=== PATIENT | male | born 1945 | race Caucasian/White ===

== ENCOUNTER 2022-05-31 14:30 | Inpatient (IN) ==
[2022-05-31] MEDS ORDERED: LEXAPRO ONE (20:26)
[2022-05-31] MEDS: ZOSYN VIAL 4.5 GRAMS 4.5 G in NS 100 ML IV 100 ML IV SCH ×2 (20:39→22:21)
[2022-05-31] MEDS: LOTENSIN TAB 10 MG PO SCH (20:40)
[2022-05-31] MEDS: FLOMAX PO SCH (20:40)
[2022-05-31] MEDS: LEXAPRO PO SCH (20:40)
[2022-05-31] MEDS: NORVASC TAB 10 MG PO SCH (20:41)
[2022-05-31] MEDS: PREDNISONE TAB 5 MG PO SCH (20:50)
[2022-05-31] MEDS: DUONEB 0.5 MG/3 MG (3 mL) NEB PRN (21:00)
[2022-05-31] MEDS ORDERED: PATIENT'S HOME MEDICATION PO SCH (21:00)
[2022-05-31] MEDS: RESTORIL CAP 15 MG PO PRN (22:46)
[2022-05-31 23:04] LABS: BASOPHILS # (AUTO) 0.1 X10^3/uL (0.0-0.1); BASOPHILS % (AUTO) 0.6 % (0.2-1.0); EOSINOPHILS # (AUTO) 0.2 x10^3/uL (0.0-0.2); EOSINOPHILS % (AUTO) 1.9 % (0.9-2.9); HEMATOCRIT 32.8 % (42.0-54.0); HEMOGLOBIN 10.8 g/dL (13.5-18.0); LYMPHOCYTES # (AUTO) 1.6 X10^3/uL (1.3-2.9); LYMPHOCYTES % (AUTO) 14.4 % (21.0-51.0); MEAN CORPUSCULAR VOLUME 84.9 fL (80.0-100.0); MEAN PLATELET VOLUME 7.1 fL (7.4-11.0); MONOCYTES # (AUTO) 1.1 x10^3/uL (0.3-0.8); MONOCYTES % (AUTO) 9.2 % (0.0-13.0); NEUTROPHILS # (AUTO) 8.4 x10^3/uL (2.2-4.8); NEUTROPHILS % (AUTO) 73.9 % (42.0-75.0); RED BLOOD COUNT 3.86 X10^6/uL (4.7-6.0); WHITE BLOOD COUNT 11.4 X10^3/uL (3.6-10.0)
[2022-05-31 23:16] LABS: ALANINE AMINOTRANSFERASE 37 Units/L (12-78); ALBUMIN 2.4 g/dL (3.4-5.0); ALKALINE PHOSPHATASE 107 Units/L (46-116); ASPARTATE AMINO TRANSFERASE 18 Units/L (15-37); BLOOD UREA NITROGEN 17 mg/dL (7-18); CALCIUM 7.2 mg/dL (8.5-10.1); CHLORIDE 105 mmol/L (98-107); COR CA(FOR HYPOALB) 8.5 mg/dL (8.5-10.1); COR NA(FOR HYPERGLY) 139 mmol/L (136-145); CREATININE 0.96 mg/dL (0.70-1.30); SODIUM 139 mmol/L (136-145); TOTAL PROTEIN 5.7 g/dL (6.4-8.2); eGFR NON BLACK RACES > 60 (>60)
[2022-05-31] MEDS ORDERED: MICRO K EXTEN CAP 10 MEQ PO PRN (23:27)
[2022-05-31] MEDS ORDERED: KLOR-CON PO PRN (23:27)
[2022-05-31] MEDS ORDERED: POTASSIUM CHLORIDE LIQ 20 MEQ UDC PO PRN (23:27)
[2022-05-31] MEDS ORDERED: K-DUR TAB 20 MEQ PO PRN (23:27)
[2022-05-31] MEDS ORDERED: MAGNESIUM SULFATE 1 GRAM/100 mL PREMIX 1 G/100 ML BAG IV PRN (23:27)
[2022-05-31] MEDS ORDERED: K-RIDER 10 MEQ/NS 100 ML 10 MEQ/100 ML BAG IV PRN (23:27)
[2022-05-31] MEDS: CLEOCIN 600 MG IV PREMIX 600 MG/50 ML BAG IV SCH (23:54)
[2022-06-01] MEDS: DUONEB 0.5 MG/3 MG (3 mL) NEB PRN ×6 (01:00→20:47)
[2022-06-01] MEDS: CLEOCIN 600 MG IV PREMIX 600 MG/50 ML BAG IV SCH ×3 (05:02→21:00)
[2022-06-01] MEDS: ZOSYN VIAL 4.5 GRAMS 4.5 G in NS 100 ML IV 100 ML IV SCH ×3 (05:30→21:27)
[2022-06-01] MEDS: PREDNISONE TAB 5 MG PO SCH ×2 (08:41→20:04)
[2022-06-01] MEDS: LIPITOR TAB 20 MG PO SCH (08:42)
[2022-06-01] MEDS: ASPIRIN EC 81 MG PO SCH (08:42)
[2022-06-01] MEDS: NORVASC TAB 10 MG PO SCH ×2 (08:42→20:05)
--- NOTE | 2022-06-01 13:23 | PT/OTEVAL ---
PT/OT OBJECTIVES - HISTORY Prescription: PT Consult Diagnosis: Empyema Precautions: Fall Risk, Respiratory PMH: HTN, HLD, Anxiety, Depression, L Knee Replacement, L Shoulder Sx, L Hip Replacement Prior Level of Function: Independent Other: Per pt report: Pt resides in single story home with his with 7 steps to enter (BHR). Pt reports that he had been noting a gradual decline in strength and overall mobility during the few weeks leading up to his hospitalization but that he was able to perform all mobility tasks without a device within the home and community. Pt and his split household activities with pt doing the majority of the cooking. Pt's is unable to physically assist pt. DME: SPC. - COGNITION Mental Status: Alert, Oriented, Name, Date, Place, Purpose Communication Status: Verbal Ability to Follow Directions: 3 Step Memory Loss: None - PAIN Right Lateral Ribs Pain Scale: Discomfort (1-2) - BED MOBILITY Rolling: Independent Scooting: Independent Bridging: Independent - TRANSFERS Supine to Sit: Supervision Sit to Stand: Supervision Sit or Stand Pivot: Supervision - BALANCE Static Sitting: Good Standing: Fair Dynamic Sitting: Good Standing: Poor - NEUROMOTOR/SENSATION Rasta. Lower Ext Sensation: WFL Coordination: WFL Proprioception: WFL - HAND DOMINANCE Extremity Function: Hand Dominance: Right - ROM Bilateral LE ROM: WFL Muscle Tone: WFL - STRENGTH Bilateral LE Strength Number: 3 Other comment: Grossly 3+/5 - GAIT Pt. ambulates how many feet?: 300 Amount of Assistance Required: Minimal Type of Assistive Device: None Comments: CGA for balance/safety. Cues for posture PT/OT ASSESSMENT - PT Problem List: Decreased Bed Mobility, Decreased Transfers, Decreased Gait, Decreased Balance, Decreased Safety, Decreased LE Strength - PT GOALS Short Term Goals Days: 10 Transfers: Pt will perform functional transfers with mod I Gait: Pt will ambulate 500ft without a device with supervision Balance: Pt will increase static standing balance to good ROM/Strength: Pt will increase BLE strength by 1 MMT grade Charge Lpn Goals Days: 20 Gait: Pt will ambulate 1000ft without a device with mod I Balance: Pt will increase dynamic standing balance to good- ROM/Strength: Pt will perform 12 sit to stand transfers in 30 seconds & increase MMT to 5 Others: Pt will ascend/descend 7 stairs with HR with mod I - PATIENT GOALS Patient/Family Goals: "Just do what I can to get better and stronger" Goals Discussed with Patient/Family: Yes Rehabilitation Potential: Good to meet stated goals Justification for Potential: Facilitate highest level of function & safe discharge planning Weakness and Barriers: None - PLAN Suggested Treatment Plan: Bed Mobility Training, Therapeutic Activity, Gait Training, Neuro Re-education, Therapeutic Ex with HEP, Patient Education - FREQUENCY AND DURATION PT: 5x per week x 20 days Expected Continuation of Care at Discharge: Outpatient Therapy, Home Health Comments: Pending progress
--- NOTE | 2022-06-01 14:01 | DR.H&P ---
H&P - History & Physical for Day of: H&P Date: 05/31/22 - Chief Complaint Chief Complaint: IV ANTIBIOTIC THERAPY FOR LUNG INFECTION - History of Present Illness History of Present Illness: PT IS 77 WM TRANSFERRED FROM [facility] FOR SWING BE THERAPY TO RECEIVE IV ANTIBIOTIC THERAPY FOR TREATMENT OF R LUNG PNEUMONIA, EMPYEMA. PT DENIES ANY KNOWN COVID OR FLU EXPOSURE. DENIES CAD. PT ADMITTED FOR SWING BED TREATMENT. - Past Medical History Past Medical History: Arthritis, Hypertension - Past Surgical History Surgical History: Ortho Surgery - Family History Family Medical History: Diabetes Mellitus, Cancer, [place] - Social History Does patient currently use any type of tobacco product: Yes Have you used tobacco products in the last 12 months: Yes Type of Tobacco Use: Cigarettes Does any household member use tobacco: No Alcohol Use: None Drug Use: None Risks, benefits, and alternatives of opioids discussed: No - Medications Home Medications: No Known Drug Allergies Allergy (Verified 05/31/22 20:03) CONTINUE taking the following medications amlodipine 10 mg tablet 1 tab PO BID 05/31/22 [History] atorvastatin 20 mg tablet 1 tab PO QDAY 05/31/22 [History] benazepril 40 mg tablet 1 tab PO QDAY 05/31/22 [History] escitalopram oxalate 10 mg tablet 1 tab PO QDAY 05/31/22 [History] oxycodone-acetaminophen 10 mg-325 mg tablet 1 tab PO TID PRN 05/31/22 [History] tamsulosin 0.4 mg capsule 1 cap PO QDAY 05/31/22 [History] - Review of Systems Constitutional: Weakness Eyes: No Symptoms Reported ENT: No Symptoms Reported Respiratory: SOB with Excertion Cardiovascular: No Symptoms Reported Gastrointestinal: No Symptoms Reported Genitourinary: No Symptoms Reported Musculoskeletal: Back Pain Skin: No Symptoms Reported Neurological: No Symptoms Reported - Physical Exam Vital Signs: Temperature 98.6 F Pulse Rate [Bilateral Radial] 81 Pulse Rate 94 Respiratory Rate 18 Blood Pressure [Left Arm] 108/56 O2 Sat by Pulse Oximetry 94 Oriented: Normal Eyes: Normal Ear: Normal Nose: Normal Throat: Normal Respiratory: RML Diminished, RLL Diminished, LLL Diminished Cardiovascular: Normal. negative: Edema : Normal Auscultation: Bowel Sounds: Normal Palpation: Normal Tenderness: Normal Skin: Normal Musculoskeletal: Back:Lumbar Psychiatric: Normal Mood Description: Anxious Affect: Anxious Speech Pattern: Clear, Appropriate - Assessment/Plan (1) Empyema lung Status: Acute Plan: ADMIT SWING BED THERAPY FOR IV ATBX THERAPY. CONTINUE HOME MEDICATION, ROUTINE LABS - Allergies Allergies/Adverse Reactions: Allergies Allergy/AdvReac Type Severity Reaction Status Date / Time No Known Drug Allergies Allergy Verified 05/31/22 20:03
--- NOTE | 2022-06-01 15:16 | PT/OTEVAL ---
PT/OT OBJECTIVES - HISTORY Prescription: OT consult Diagnosis: S/P Empyema Precautions: SOB, Falls PMH: Arthritis, Hypertension Prior Level of Function: Independent - COGNITION Mental Status: Alert, Oriented, Name, Date, Place, Purpose Communication Status: Verbal Ability to Follow Directions: 3 Step Memory Loss: None - PAIN Right Lateral Ribs Pain Scale: No Pain - BED MOBILITY Rolling: Independent Scooting: Independent Bridging: Independent - TRANSFERS Supine to Sit: Independent Sit to Stand: Independent Sit or Stand Pivot: Independent - ADL'S Feeding: Independent Grooming: Independent Upper Body ADL: Independent Lower Body ADL: Supervision Toileting: Supervision - BALANCE Static Sitting: Good Standing: Fair Dynamic Sitting: Good Standing: Poor - NEUROMOTOR/SENSATION Rasta. Lower Ext Sensation: WFL Coordination: WFL Proprioception: WFL [place]. Upper Ext Sensation: WFL Coordination: WFL Proprioception: WFL - HAND DOMINANCE Extremity Function: Hand Dominance: Right - ROM Bilateral UE ROM: WFL Muscle Tone: WFL - STRENGTH Bilateral LE Strength Number: 3 Other comment: Grossly 3+/5 Bilateral UE Strength Number: 3 - GAIT Pt. ambulates how many feet?: 15 Amount of Assistance Required: Supervision PT/OT ASSESSMENT - OT Problem List: Decreased Mobility ADL's, Decreased Dressing, Decreased Bathing, Decreased UE Strength - PT GOALS Short Term Goals Days: 10 Transfers: Pt will perform functional transfers with mod I Gait: Pt will ambulate 500ft without a device with supervision Balance: Pt will increase static standing balance to good ROM/Strength: Pt will increase BLE strength by 1 MMT grade Assisted Goals Days: 20 Gait: Pt will ambulate 1000ft without a device with mod I Balance: Pt will increase dynamic standing balance to good- ROM/Strength: Pt will perform 12 sit to stand transfers in 30 seconds & increase MMT to 5 Others: Pt will ascend/descend 7 stairs with HR with mod I - OT GOALS Short Term Goals Days: 5 Mobility for ADL's: Pt will increase ADL transfers to set-up A using A.D. as necessary. Dressing: Pt will increase LB dressing skills to set-up A using A.D. as needed. Bathing: Pt will increase UB/LB bathing skills to set-up A. Upper Ext. Strength/Use: Pt will increase UE strength to 4/5. Plug Paster Goals Days: 10 Mobility for ADL's: Pt will increase ADL transfers to independent using A.D. as needed. Dressing: Pt will increase LB dressing skills to independent using A.D. as needed. Bathing: Pt will increase UB/LB bathing skills to independent. Upper Ext. Strength/Use: Pt will increase UE strength to 5/5. - PATIENT GOALS Patient/Family Goals: To return to PLOF Goals Discussed with Patient/Family: Yes Rehabilitation Potential: good Justification for Potential: PLOF and good family support Weakness and Barriers: None - PLAN Suggested Treatment Plan: Therapeutic Activity, Self Care Training, Neuro Re- education, Therapeutic Ex with HEP, Home Management, Patient Education, Family Education - FREQUENCY AND DURATION OT: 3x/wk x hospital stay Expected Continuation of Care at Discharge: Home Health
[2022-06-01] MEDS ORDERED: LEXAPRO ONE (19:46)
[2022-06-01] MEDS: RESTORIL CAP 15 MG PO PRN (20:03)
[2022-06-01] MEDS: LOTENSIN TAB 10 MG PO SCH (20:03)
[2022-06-01] MEDS: LEXAPRO PO SCH (20:04)
[2022-06-01] MEDS: FLOMAX PO SCH (20:05)
[2022-06-02] MEDS: CLEOCIN 600 MG IV PREMIX 600 MG/50 ML BAG IV SCH ×3 (05:01→21:02)
[2022-06-02] MEDS: ZOSYN VIAL 4.5 GRAMS 4.5 G in NS 100 ML IV 100 ML IV SCH ×3 (05:41→21:58)
[2022-06-02] MEDS: DUONEB 0.5 MG/3 MG (3 mL) NEB PRN ×5 (06:17→20:30)
[2022-06-02 06:38] LABS: BASOPHILS # (AUTO) 0.1 X10^3/uL (0.0-0.1); BASOPHILS % (AUTO) 0.8 % (0.2-1.0); EOSINOPHILS # (AUTO) 0.3 x10^3/uL (0.0-0.2); EOSINOPHILS % (AUTO) 2.5 % (0.9-2.9); HEMATOCRIT 30.4 % (42.0-54.0); HEMOGLOBIN 10.4 g/dL (13.5-18.0); LYMPHOCYTES # (AUTO) 1.3 X10^3/uL (1.3-2.9); LYMPHOCYTES % (AUTO) 11.8 % (21.0-51.0); MEAN CORPUSCULAR HGB CONC 34.1 g/dL (33.0-35.0); MEAN CORPUSCULAR VOLUME 85.1 fL (80.0-100.0); MEAN PLATELET VOLUME 7.1 fL (7.4-11.0); MONOCYTES # (AUTO) 0.9 x10^3/uL (0.3-0.8); MONOCYTES % (AUTO) 8.8 % (0.0-13.0); NEUTROPHILS # (AUTO) 8.1 x10^3/uL (2.2-4.8); NEUTROPHILS % (AUTO) 76.1 % (42.0-75.0); RED BLOOD COUNT 3.58 X10^6/uL (4.7-6.0); RED CELL DISTRIBUTION WIDTH 15.7 % (11.6-16.5); WHITE BLOOD COUNT 10.7 X10^3/uL (3.6-10.0)
[2022-06-02 06:48] LABS: ALANINE AMINOTRANSFERASE 33 Units/L (12-78); ALBUMIN 2.3 g/dL (3.4-5.0); ALKALINE PHOSPHATASE 97 Units/L (46-116); ASPARTATE AMINO TRANSFERASE 18 Units/L (15-37); BLOOD UREA NITROGEN 13 mg/dL (7-18); CALCIUM 7.3 mg/dL (8.5-10.1); CARBON DIOXIDE 30.2 mmol/L (21-32); CHLORIDE 104 mmol/L (98-107); COR CA(FOR HYPOALB) 8.7 mg/dL (8.5-10.1); CREATININE 0.86 mg/dL (0.70-1.30); SODIUM 137 mmol/L (136-145); TOTAL PROTEIN 5.5 g/dL (6.4-8.2); eGFR NON BLACK RACES > 60 (>60)
[2022-06-02] MEDS: LIPITOR TAB 20 MG PO SCH (08:29)
[2022-06-02] MEDS: ASPIRIN EC 81 MG PO SCH (08:30)
[2022-06-02] MEDS: PREDNISONE TAB 5 MG PO SCH ×2 (08:30→20:41)
[2022-06-02] MEDS: NORVASC TAB 10 MG PO SCH ×2 (08:35→20:41)
[2022-06-02] MEDS ORDERED: NS 250 ML IV 250 ML IV ONE (14:57)
[2022-06-02] MEDS ORDERED: LEXAPRO ONE (20:27)
[2022-06-02] MEDS: RESTORIL CAP 15 MG PO PRN (20:40)
[2022-06-02] MEDS: FLOMAX PO SCH (20:41)
[2022-06-02] MEDS: LEXAPRO PO SCH (20:41)
[2022-06-02] MEDS: LOTENSIN TAB 10 MG PO SCH (20:42)
[2022-06-03] MEDS: DUONEB 0.5 MG/3 MG (3 mL) NEB PRN ×6 (04:50→20:42)
[2022-06-03] MEDS: CLEOCIN 600 MG IV PREMIX 600 MG/50 ML BAG IV SCH ×3 (05:04→21:02)
[2022-06-03] MEDS: ZOSYN VIAL 4.5 GRAMS 4.5 G in NS 100 ML IV 100 ML IV SCH ×3 (05:40→21:49)
[2022-06-03] MEDS: PREDNISONE TAB 5 MG PO SCH ×2 (10:03→21:01)
[2022-06-03] MEDS: NORVASC TAB 10 MG PO SCH ×2 (10:03→21:01)
[2022-06-03] MEDS: ASPIRIN EC 81 MG PO SCH (10:03)
[2022-06-03] MEDS: LIPITOR TAB 20 MG PO SCH (10:03)
[2022-06-03 13:42] VITALS: BMI 29.9
--- NOTE | 2022-06-03 18:08 | PCM.PROG ---
Progress Note - Progress Note for Day of Date of Exam: 06/03/22 - Subjective Subjective: PT IS 77 WM TRANSFERRED FROM [facility] FOR SWING BE THERAPY TO RECEIVE IV ANTIBIOTIC THERAPY FOR TREATMENT OF R LUNG PNEUMONIA, EMPYEMA. PT DENIES ANY KNOWN COVID OR FLU EXPOSURE. DENIES CAD. PT ADMITTED FOR SWING BED TREATMENT. - Past Medical Family Social History Past Med/Fam/Surg Hx: No changes since H&P Allergies: Allergies No Known Drug Allergies Allergy (Verified 05/31/22 20:03) - Review of Systems ROS: No change since H&P - Vital Signs and I&O's Vital Signs: Temperature 98.0 F Pulse Rate [Bilateral Radial] 94 Pulse Rate 75 Respiratory Rate 20 Blood Pressure [Left Arm] 115/63 O2 Sat by Pulse Oximetry 98 Intake and Output: Intake & Output 06/01/22 06/02/22 06/03/22 06/04/22 11:59 11:59 11:59 11:59 Intake Total 626 / 626 2440 / 2440 1915 / 1915 400 / 400 Output Total 1280 / 1280 950 / 950 Balance 626 / 626 1160 / 1160 965 / 965 400 / 400 - Physical Exam Oriented: Normal Eyes: Normal Ear: Normal Nose: Normal Throat: Normal Respiratory: Diminished Cardiovascular: Normal. negative: Edema : Normal Auscultation: Bowel Sounds: Normal Tenderness: Normal Skin: Normal Musculoskeletal: Back:Lumbar Psychiatric: Normal Mood Description: Anxious Affect: Anxious Speech Pattern: Clear, Appropriate - Laboratory and Diagnostics Result Diagrams: 06/02/22 05:59 06/02/22 05:59 Labs: Laboratory WBC 10.7 X10^3/uL (3.6-10.0) H 06/02/22 05:59 RBC 3.58 X10^6/uL (4.7-6.0) L 06/02/22 05:59 Hgb 10.4 g/dL (13.5-18.0) L 06/02/22 05:59 Hct 30.4 % (42.0-54.0) L 06/02/22 05:59 MCV 85.1 fL (80.0-100.0) 06/02/22 05:59 MCH 29.0 pg (27.0-34.0) 06/02/22 05:59 MCHC 34.1 g/dL (33.0-35.0) 06/02/22 05:59 RDW 15.7 % (11.6-16.5) 06/02/22 05:59 Plt Count 251 X10^3/uL (150.0-450.0) 06/02/22 05:59 MPV 7.1 fL (7.4-11.0) L 06/02/22 05:59 Neut % (Auto) 76.1 % (42.0-75.0) H 06/02/22 05:59 Lymph % (Auto) 11.8 % (21.0-51.0) L 06/02/22 05:59 [place] % (Auto) 8.8 % (0.0-13.0) 06/02/22 05:59 Eos % (Auto) 2.5 % (0.9-2.9) 06/02/22 05:59 Baso % (Auto) 0.8 % (0.2-1.0) 06/02/22 05:59 Neut # (Auto) 8.1 x10^3/uL (2.2-4.8) H 06/02/22 05:59 Lymph # (Auto) 1.3 X10^3/uL (1.3-2.9) 06/02/22 05:59 [place] # (Auto) 0.9 x10^3/uL (0.3-0.8) H 06/02/22 05:59 Eos # (Auto) 0.3 x10^3/uL (0.0-0.2) H 06/02/22 05:59 Baso # (Auto) 0.1 X10^3/uL (0.0-0.1) 06/02/22 05:59 Absolute Nucleated RBC 0.0 /100WBC 06/02/22 05:59 Sodium 137 mmol/L (136-145) 06/02/22 05:59 Corrected Sodium TNP 06/02/22 05:59 Potassium 3.9 mmol/L (3.5-5.1) 06/02/22 05:59 Chloride 104 mmol/L (98-107) 06/02/22 05:59 Carbon Dioxide 30.2 mmol/L (21-32) 06/02/22 05:59 BUN 13 mg/dL (7-18) 06/02/22 05:59 Creatinine 0.86 mg/dL (0.70-1.30) 06/02/22 05:59 Est GFR (MDRD) Af Amer > 60 (>60) 06/02/22 05:59 Est GFR (MDRD) Non-Af > 60 (>60) 06/02/22 05:59 Glucose 105 mg/dL (65-99) H 06/02/22 05:59 Calcium 7.3 mg/dL (8.5-10.1) L 06/02/22 05:59 Corrected Calcium 8.7 mg/dL (8.5-10.1) 06/02/22 05:59 Magnesium 2.0 mg/dL (1.7-2.9) 06/02/22 05:59 Total Bilirubin 0.30 mg/dL (0.2-1.0) 06/02/22 05:59 AST 18 Units/L (15-37) 06/02/22 05:59 ALT 33 Units/L (12-78) 06/02/22 05:59 Alkaline Phosphatase 97 Units/L (46-116) 06/02/22 05:59 Total Protein 5.5 g/dL (6.4-8.2) L 06/02/22 05:59 Albumin 2.3 g/dL (3.4-5.0) L 06/02/22 05:59 Globulin 3.2 g/dL (2.5-4.5) 06/02/22 05:59 Albumin/Globulin Ratio 0.7 Ratio (1.1-2.1) L 06/02/22 05:59 - Plan (1) Empyema lung Status: Acute Plan: SWING BED THERAPY FOR IV ATBX THERAPY. CONTINUE HOME MEDICATION, ROUTINE LABS
[2022-06-03] MEDS ORDERED: LEXAPRO ONE (20:45)
[2022-06-03] MEDS: LOTENSIN TAB 10 MG PO SCH (21:00)
[2022-06-03] MEDS: FLOMAX PO SCH (21:01)
[2022-06-03] MEDS: LEXAPRO PO SCH (21:01)
[2022-06-03] MEDS: RESTORIL CAP 15 MG PO PRN (21:07)
[2022-06-04] MEDS: DUONEB 0.5 MG/3 MG (3 mL) NEB PRN ×7 (00:41→21:03)
[2022-06-04] MEDS: CLEOCIN 600 MG IV PREMIX 600 MG/50 ML BAG IV SCH ×3 (05:06→21:01)
[2022-06-04] MEDS: ZOSYN VIAL 4.5 GRAMS 4.5 G in NS 100 ML IV 100 ML IV SCH ×3 (05:43→21:38)
[2022-06-04 06:45] LABS: BASOPHILS # (AUTO) 0.1 X10^3/uL (0.0-0.1); BASOPHILS % (AUTO) 1.2 % (0.2-1.0); EOSINOPHILS # (AUTO) 0.3 x10^3/uL (0.0-0.2); EOSINOPHILS % (AUTO) 3.6 % (0.9-2.9); HEMATOCRIT 31.9 % (42.0-54.0); HEMOGLOBIN 10.8 g/dL (13.5-18.0); LYMPHOCYTES # (AUTO) 1.6 X10^3/uL (1.3-2.9); LYMPHOCYTES % (AUTO) 18.2 % (21.0-51.0); MEAN CORPUSCULAR HEMOGLOBIN 28.9 pg (27.0-34.0); MEAN CORPUSCULAR VOLUME 85.1 fL (80.0-100.0); MEAN PLATELET VOLUME 7.3 fL (7.4-11.0); MONOCYTES # (AUTO) 0.7 x10^3/uL (0.3-0.8); MONOCYTES % (AUTO) 8.3 % (0.0-13.0); NEUTROPHILS # (AUTO) 5.9 x10^3/uL (2.2-4.8); NEUTROPHILS % (AUTO) 68.7 % (42.0-75.0); RED BLOOD COUNT 3.75 X10^6/uL (4.7-6.0); RED CELL DISTRIBUTION WIDTH 16.9 % (11.6-16.5); WHITE BLOOD COUNT 8.6 X10^3/uL (3.6-10.0)
[2022-06-04 06:50] LABS: ALANINE AMINOTRANSFERASE 35 Units/L (12-78); ALBUMIN 2.5 g/dL (3.4-5.0); ALKALINE PHOSPHATASE 98 Units/L (46-116); ASPARTATE AMINO TRANSFERASE 23 Units/L (15-37); BLOOD UREA NITROGEN 12 mg/dL (7-18); CALCIUM 7.8 mg/dL (8.5-10.1); CARBON DIOXIDE 30.7 mmol/L (21-32); CHLORIDE 104 mmol/L (98-107); SODIUM 141 mmol/L (136-145); TOTAL PROTEIN 6.3 g/dL (6.4-8.2); eGFR NON BLACK RACES > 60 (>60)
--- NOTE | 2022-06-04 07:37 | RAD ---
HISTORYSOBSTUDYCHEST, 1 [id number]/17/2022.TECHNIQUEAP view of the chestFINDINGSCardiac and mediastinal contours are within normal limits. The left lung appears clear. No significant change in airspace opacities in the right lung with a mid to lower lung predominance. No definite pleural effusion or pneumothorax.IMPRESSIONNo significant change compared to prior radiograph.Electronically signed by: Ricky Bermeo (Jun 04, 2022 07:35:39)
[2022-06-04] MEDS ORDERED: MAGIC MOUTHWASH (Orig. Formula) MT PRN (08:57)
[2022-06-04] MEDS: ASPIRIN EC 81 MG PO SCH (09:22)
[2022-06-04] MEDS: PREDNISONE TAB 5 MG PO SCH ×2 (09:22→20:55)
[2022-06-04] MEDS: LIPITOR TAB 20 MG PO SCH (09:22)
[2022-06-04] MEDS: NORVASC TAB 10 MG PO SCH ×2 (09:22→20:56)
--- NOTE | 2022-06-04 12:35 | PCM.PROG ---
Progress Note - Progress Note for Day of Date of Exam: 06/04/22 - Subjective Subjective: PT IS 77 [facility] TO RECEIVE IV ANTIBIOTIC THERAPY FOR TREATMENT OF R LUNG PNEUMONIA, EMPYEMA. PT DENIES ANY KNOWN COVID OR FLU EXPOSURE. DENIES CAD. PT ADMITTED FOR SWING BED TREATMENT. - Past Medical Family Social History Past Med/Fam/Surg Hx: No changes since H&P Allergies: Allergies No Known Drug Allergies Allergy (Verified 05/31/22 20:03) - Review of Systems ROS: No change since H&P - Vital Signs and I&O's Vital Signs: Temperature 97.6 F Pulse Rate [Bilateral Radial] 103 Pulse Rate 99 Respiratory Rate 19 Blood Pressure [Left Arm] 130/66 O2 Sat by Pulse Oximetry 96 Intake and Output: Intake & Output 06/02/22 06/03/22 06/04/22 06/05/22 11:59 11:59 11:59 11:59 Intake Total 2440 / 2440 1915 / 1915 1496 / 1496 Output Total 1280 / 1280 950 / 950 1010 / 1010 Balance 1160 / 1160 965 / 965 486 / 486 - Physical Exam Oriented: Normal Eyes: Normal Ear: Normal Nose: Normal Throat: Normal Respiratory: Diminished Cardiovascular: Normal. negative: Edema : Normal Auscultation: Bowel Sounds: Normal Tenderness: Normal Skin: Normal Musculoskeletal: Back:Lumbar Psychiatric: Normal Mood Description: Anxious Affect: Anxious Speech Pattern: Clear, Appropriate - Laboratory and Diagnostics Result Diagrams: 06/04/22 05:17 06/04/22 05:17 Labs: Laboratory WBC 8.6 X10^3/uL (3.6-10.0) 06/04/22 05:17 RBC 3.75 X10^6/uL (4.7-6.0) L 06/04/22 05:17 Hgb 10.8 g/dL (13.5-18.0) L 06/04/22 05:17 Hct 31.9 % (42.0-54.0) L 06/04/22 05:17 MCV 85.1 fL (80.0-100.0) 06/04/22 05:17 MCH 28.9 pg (27.0-34.0) 06/04/22 05:17 MCHC 34.0 g/dL (33.0-35.0) 06/04/22 05:17 RDW 16.9 % (11.6-16.5) H 06/04/22 05:17 Plt Count 249 X10^3/uL (150.0-450.0) 06/04/22 05:17 MPV 7.3 fL (7.4-11.0) L 06/04/22 05:17 Neut % (Auto) 68.7 % (42.0-75.0) 06/04/22 05:17 Lymph % (Auto) 18.2 % (21.0-51.0) L 06/04/22 05:17 [place] % (Auto) 8.3 % (0.0-13.0) 06/04/22 05:17 Eos % (Auto) 3.6 % (0.9-2.9) H 06/04/22 05:17 Baso % (Auto) 1.2 % (0.2-1.0) H 06/04/22 05:17 Neut # (Auto) 5.9 x10^3/uL (2.2-4.8) H 06/04/22 05:17 Lymph # (Auto) 1.6 X10^3/uL (1.3-2.9) 06/04/22 05:17 [place] # (Auto) 0.7 x10^3/uL (0.3-0.8) 06/04/22 05:17 Eos # (Auto) 0.3 x10^3/uL (0.0-0.2) H 06/04/22 05:17 Baso # (Auto) 0.1 X10^3/uL (0.0-0.1) 06/04/22 05:17 Absolute Nucleated RBC 0.0 /100WBC 06/04/22 05:17 Sodium 141 mmol/L (136-145) 06/04/22 05:17 Corrected Sodium TNP 06/04/22 05:17 Potassium 4.0 mmol/L (3.5-5.1) 06/04/22 05:17 Chloride 104 mmol/L (98-107) 06/04/22 05:17 Carbon Dioxide 30.7 mmol/L (21-32) 06/04/22 05:17 BUN 12 mg/dL (7-18) 06/04/22 05:17 Creatinine 0.80 mg/dL (0.70-1.30) 06/04/22 05:17 Est GFR (MDRD) Af Amer > 60 (>60) 06/04/22 05:17 Est GFR (MDRD) Non-Af > 60 (>60) 06/04/22 05:17 Glucose 105 mg/dL (65-99) H 06/04/22 05:17 Calcium 7.8 mg/dL (8.5-10.1) L 06/04/22 05:17 Corrected Calcium 9.0 mg/dL (8.5-10.1) 06/04/22 05:17 Magnesium 2.0 mg/dL (1.7-2.9) 06/02/22 05:59 Total Bilirubin 0.30 mg/dL (0.2-1.0) 06/04/22 05:17 AST 23 Units/L (15-37) 06/04/22 05:17 ALT 35 Units/L (12-78) 06/04/22 05:17 Alkaline Phosphatase 98 Units/L (46-116) 06/04/22 05:17 Total Protein 6.3 g/dL (6.4-8.2) L 06/04/22 05:17 Albumin 2.5 g/dL (3.4-5.0) L 06/04/22 05:17 Globulin 3.8 g/dL (2.5-4.5) 06/04/22 05:17 Albumin/Globulin Ratio 0.7 Ratio (1.1-2.1) L 06/04/22 05:17 - Plan (1) Empyema lung Status: Acute Plan: SWING BED THERAPY FOR IV ATBX THERAPY. CONTINUE HOME MEDICATION, ROUTINE LABS
[2022-06-04] MEDS ORDERED: LEXAPRO ONE (20:16)
[2022-06-04] MEDS: LOTENSIN TAB 10 MG PO SCH (20:52)
[2022-06-04] MEDS: RESTORIL CAP 15 MG PO PRN (20:54)
[2022-06-04] MEDS: FLOMAX PO SCH (20:54)
[2022-06-04] MEDS: LEXAPRO PO SCH (20:54)
[2022-06-05] MEDS: DUONEB 0.5 MG/3 MG (3 mL) NEB PRN ×5 (00:58→21:00)
[2022-06-05 05:18] LABS: BASOPHILS # (AUTO) 0.1 X10^3/uL (0.0-0.1); BASOPHILS % (AUTO) 1.8 % (0.2-1.0); EOSINOPHILS # (AUTO) 0.3 x10^3/uL (0.0-0.2); EOSINOPHILS % (AUTO) 4.4 % (0.9-2.9); HEMATOCRIT 28.9 % (42.0-54.0); HEMOGLOBIN 9.7 g/dL (13.5-18.0); LYMPHOCYTES # (AUTO) 1.4 X10^3/uL (1.3-2.9); LYMPHOCYTES % (AUTO) 19.7 % (21.0-51.0); MEAN CORPUSCULAR HEMOGLOBIN 28.4 pg (27.0-34.0); MEAN CORPUSCULAR HGB CONC 33.5 g/dL (33.0-35.0); MEAN CORPUSCULAR VOLUME 84.7 fL (80.0-100.0); MEAN PLATELET VOLUME 6.9 fL (7.4-11.0); MONOCYTES # (AUTO) 0.6 x10^3/uL (0.3-0.8); MONOCYTES % (AUTO) 8.7 % (0.0-13.0); NEUTROPHILS # (AUTO) 4.8 x10^3/uL (2.2-4.8); NEUTROPHILS % (AUTO) 65.4 % (42.0-75.0); RED BLOOD COUNT 3.41 X10^6/uL (4.7-6.0); RED CELL DISTRIBUTION WIDTH 17.4 % (11.6-16.5); WHITE BLOOD COUNT 7.3 X10^3/uL (3.6-10.0)
[2022-06-05] MEDS: CLEOCIN 600 MG IV PREMIX 600 MG/50 ML BAG IV SCH ×3 (05:23→21:00)
[2022-06-05 05:32] LABS: ALANINE AMINOTRANSFERASE 28 Units/L (12-78); ALBUMIN 2.2 g/dL (3.4-5.0); ALKALINE PHOSPHATASE 100 Units/L (46-116); ASPARTATE AMINO TRANSFERASE 18 Units/L (15-37); BLOOD UREA NITROGEN 12 mg/dL (7-18); CALCIUM 7.4 mg/dL (8.5-10.1); CARBON DIOXIDE 28.3 mmol/L (21-32); CHLORIDE 108 mmol/L (98-107); COR CA(FOR HYPOALB) 8.8 mg/dL (8.5-10.1); CREATININE 0.92 mg/dL (0.70-1.30); SODIUM 143 mmol/L (136-145); TOTAL PROTEIN 5.6 g/dL (6.4-8.2); eGFR NON BLACK RACES > 60 (>60)
[2022-06-05] MEDS: ZOSYN VIAL 4.5 GRAMS 4.5 G in NS 100 ML IV 100 ML IV SCH ×3 (06:02→21:36)
[2022-06-05] MEDS: PREDNISONE TAB 5 MG PO SCH ×2 (08:47→21:24)
[2022-06-05] MEDS: LIPITOR TAB 20 MG PO SCH (08:47)
[2022-06-05] MEDS: NORVASC TAB 10 MG PO SCH ×2 (08:47→20:30)
[2022-06-05] MEDS: ASPIRIN EC 81 MG PO SCH (08:47)
[2022-06-05] MEDS ORDERED: NS 250 ML IV 250 ML IV ONE (18:12)
[2022-06-05] MEDS ORDERED: LEXAPRO ONE (20:16)
[2022-06-05] MEDS: LEXAPRO PO SCH (20:30)
[2022-06-05] MEDS: LOTENSIN TAB 10 MG PO SCH (20:30)
[2022-06-05] MEDS: FLOMAX PO SCH (20:31)
[2022-06-05] MEDS: RESTORIL CAP 15 MG PO PRN (20:31)
[2022-06-06] MEDS: DUONEB 0.5 MG/3 MG (3 mL) NEB PRN ×6 (00:30→20:17)
[2022-06-06] MEDS: CLEOCIN 600 MG IV PREMIX 600 MG/50 ML BAG IV SCH ×3 (05:12→21:02)
[2022-06-06] MEDS: ZOSYN VIAL 4.5 GRAMS 4.5 G in NS 100 ML IV 100 ML IV SCH ×3 (05:47→21:58)
[2022-06-06] MEDS: LIPITOR TAB 20 MG PO SCH (08:36)
[2022-06-06] MEDS: PREDNISONE TAB 5 MG PO SCH ×2 (08:36→21:03)
[2022-06-06] MEDS: ASPIRIN EC 81 MG PO SCH (08:37)
[2022-06-06] MEDS: NORVASC TAB 10 MG PO SCH ×2 (08:37→21:02)
[2022-06-06] MEDS: VISTARIL PO PRN ×2 (14:16→21:30)
[2022-06-06] MEDS ORDERED: LEXAPRO ONE (19:43)
[2022-06-06] MEDS: FLOMAX PO SCH (21:02)
[2022-06-06] MEDS: LEXAPRO PO SCH (21:02)
[2022-06-06] MEDS: RESTORIL CAP 15 MG PO PRN (21:02)
[2022-06-06] MEDS: LOTENSIN TAB 10 MG PO SCH (21:03)
[2022-06-07] MEDS: DUONEB 0.5 MG/3 MG (3 mL) NEB PRN ×6 (00:05→20:45)
[2022-06-07] MEDS: CLEOCIN 600 MG IV PREMIX 600 MG/50 ML BAG IV SCH ×3 (05:14→21:02)
[2022-06-07] MEDS: ZOSYN VIAL 4.5 GRAMS 4.5 G in NS 100 ML IV 100 ML IV SCH ×3 (05:40→21:44)
[2022-06-07 06:13] LABS: BASOPHILS # (AUTO) 0.1 X10^3/uL (0.0-0.1); BASOPHILS % (AUTO) 1.7 % (0.2-1.0); EOSINOPHILS # (AUTO) 0.4 x10^3/uL (0.0-0.2); HEMATOCRIT 31.9 % (42.0-54.0); HEMOGLOBIN 10.7 g/dL (13.5-18.0); LYMPHOCYTES # (AUTO) 1.5 X10^3/uL (1.3-2.9); LYMPHOCYTES % (AUTO) 21.8 % (21.0-51.0); MEAN CORPUSCULAR HEMOGLOBIN 28.8 pg (27.0-34.0); MEAN CORPUSCULAR HGB CONC 33.5 g/dL (33.0-35.0); MEAN CORPUSCULAR VOLUME 86.2 fL (80.0-100.0); MEAN PLATELET VOLUME 6.9 fL (7.4-11.0); MONOCYTES # (AUTO) 0.5 x10^3/uL (0.3-0.8); MONOCYTES % (AUTO) 7.1 % (0.0-13.0); NEUTROPHILS # (AUTO) 4.5 x10^3/uL (2.2-4.8); NEUTROPHILS % (AUTO) 64.4 % (42.0-75.0); RED CELL DISTRIBUTION WIDTH 17.4 % (11.6-16.5)
[2022-06-07 06:37] LABS: ALANINE AMINOTRANSFERASE 34 Units/L (12-78); ALBUMIN 2.5 g/dL (3.4-5.0); ALKALINE PHOSPHATASE 98 Units/L (46-116); ASPARTATE AMINO TRANSFERASE 20 Units/L (15-37); BLOOD UREA NITROGEN 11 mg/dL (7-18); CALCIUM 7.9 mg/dL (8.5-10.1); CARBON DIOXIDE 28.7 mmol/L (21-32); CHLORIDE 107 mmol/L (98-107); COR CA(FOR HYPOALB) 9.1 mg/dL (8.5-10.1); CREATININE 0.92 mg/dL (0.70-1.30); SODIUM 141 mmol/L (136-145); TOTAL PROTEIN 6.2 g/dL (6.4-8.2); eGFR NON BLACK RACES > 60 (>60)
[2022-06-07] MEDS: NORVASC TAB 10 MG PO SCH ×2 (08:28→20:28)
[2022-06-07] MEDS: PREDNISONE TAB 5 MG PO SCH ×2 (08:28→20:28)
[2022-06-07] MEDS: ASPIRIN EC 81 MG PO SCH (08:28)
[2022-06-07] MEDS: LIPITOR TAB 20 MG PO SCH (08:28)
--- NOTE | 2022-06-07 18:46 | PCM.PROG ---
Progress Note - Progress Note for Day of Date of Exam: 06/07/22 - Subjective Subjective: PT IS 77 WM [facility] TO RECEIVE IV ANTIBIOTIC THERAPY FOR TREATMENT OF R LUNG PNEUMONIA, EMPYEMA. PT DENIES ANY KNOWN COVID OR FLU EXPOSURE. DENIES CAD. PT ADMITTED FOR SWING BED TREATMENT. - Past Medical Family Social History Past Med/Fam/Surg Hx: No changes since H&P Allergies: Allergies No Known Drug Allergies Allergy (Verified 05/31/22 20:03) - Review of Systems ROS: No change since H&P - Vital Signs and I&O's Vital Signs: Temperature 98.2 F Pulse Rate [Bilateral Radial] 86 Pulse Rate 88 Respiratory Rate 18 Blood Pressure [Left Arm] 115/61 O2 Sat by Pulse Oximetry 93 Intake and Output: Intake & Output 06/05/22 06/06/22 06/07/22 06/08/22 11:59 11:59 11:59 11:59 Intake Total 1570 / 1570 2405 / 2405 1070 / 1070 1060 / 1060 Output Total 310 / 310 1300 / 1300 Balance 1570 / 1570 2095 / 2095 -230 / -230 1060 / 1060 - Physical Exam Oriented: Normal Eyes: Normal Ear: Normal Nose: Normal Throat: Normal Respiratory: Diminished Cardiovascular: Normal. negative: Edema : Normal Auscultation: Bowel Sounds: Normal Tenderness: Normal Skin: Normal Musculoskeletal: Back:Lumbar Psychiatric: Normal Mood Description: Anxious Affect: Anxious Speech Pattern: Clear, Appropriate - Laboratory and Diagnostics Result Diagrams: 06/07/22 05:13 06/07/22 05:13 Labs: Laboratory WBC 7.0 X10^3/uL (3.6-10.0) 06/07/22 05:13 RBC 3.70 X10^6/uL (4.7-6.0) L 06/07/22 05:13 Hgb 10.7 g/dL (13.5-18.0) L 06/07/22 05:13 Hct 31.9 % (42.0-54.0) L 06/07/22 05:13 MCV 86.2 fL (80.0-100.0) 06/07/22 05:13 MCH 28.8 pg (27.0-34.0) 06/07/22 05:13 MCHC 33.5 g/dL (33.0-35.0) 06/07/22 05:13 RDW 17.4 % (11.6-16.5) H 06/07/22 05:13 Plt Count 230 X10^3/uL (150.0-450.0) 06/07/22 05:13 MPV 6.9 fL (7.4-11.0) L 06/07/22 05:13 Neut % (Auto) 64.4 % (42.0-75.0) 06/07/22 05:13 Lymph % (Auto) 21.8 % (21.0-51.0) 06/07/22 05:13 [place] % (Auto) 7.1 % (0.0-13.0) 06/07/22 05:13 Eos % (Auto) 5.0 % (0.9-2.9) H 06/07/22 05:13 Baso % (Auto) 1.7 % (0.2-1.0) H 06/07/22 05:13 Neut # (Auto) 4.5 x10^3/uL (2.2-4.8) 06/07/22 05:13 Lymph # (Auto) 1.5 X10^3/uL (1.3-2.9) 06/07/22 05:13 [place] # (Auto) 0.5 x10^3/uL (0.3-0.8) 06/07/22 05:13 Eos # (Auto) 0.4 x10^3/uL (0.0-0.2) H 06/07/22 05:13 Baso # (Auto) 0.1 X10^3/uL (0.0-0.1) 06/07/22 05:13 Absolute Nucleated RBC 0.0 /100WBC 06/07/22 05:13 Sodium 141 mmol/L (136-145) 06/07/22 05:13 Corrected Sodium TNP 06/07/22 05:13 Potassium 4.0 mmol/L (3.5-5.1) 06/07/22 05:13 Chloride 107 mmol/L (98-107) 06/07/22 05:13 Carbon Dioxide 28.7 mmol/L (21-32) 06/07/22 05:13 BUN 11 mg/dL (7-18) 06/07/22 05:13 Creatinine 0.92 mg/dL (0.70-1.30) 06/07/22 05:13 Est GFR (MDRD) Af Amer > 60 (>60) 06/07/22 05:13 Est GFR (MDRD) Non-Af > 60 (>60) 06/07/22 05:13 Glucose 102 mg/dL (65-99) H 06/07/22 05:13 Calcium 7.9 mg/dL (8.5-10.1) L 06/07/22 05:13 Corrected Calcium 9.1 mg/dL (8.5-10.1) 06/07/22 05:13 Magnesium 2.0 mg/dL (1.7-2.9) 06/02/22 05:59 Total Bilirubin 0.20 mg/dL (0.2-1.0) 06/07/22 05:13 AST 20 Units/L (15-37) 06/07/22 05:13 ALT 34 Units/L (12-78) 06/07/22 05:13 Alkaline Phosphatase 98 Units/L (46-116) 06/07/22 05:13 Total Protein 6.2 g/dL (6.4-8.2) L 06/07/22 05:13 Albumin 2.5 g/dL (3.4-5.0) L 06/07/22 05:13 Globulin 3.7 g/dL (2.5-4.5) 06/07/22 05:13 Albumin/Globulin Ratio 0.7 Ratio (1.1-2.1) L 06/07/22 05:13 - Plan (1) Empyema lung Status: Acute Plan: SWING BED THERAPY FOR IV ATBX THERAPY. CONTINUE HOME MEDICATION, ROUTINE LABS
[2022-06-07] MEDS ORDERED: LEXAPRO ONE (20:04)
[2022-06-07] MEDS: FLOMAX PO SCH (20:27)
[2022-06-07] MEDS: LEXAPRO PO SCH (20:28)
[2022-06-07] MEDS: LOTENSIN TAB 10 MG PO SCH (20:29)
[2022-06-07] MEDS: RESTORIL CAP 15 MG PO PRN (21:44)
[2022-06-07] MEDS: VISTARIL PO PRN (21:44)
--- NOTE | 2022-06-07 23:46 | RAD ---
HISTORYPNEUMONIASTUDYCHEST, 1 VIEWCOMPARISONOctober 2021TECHNIQUEChest radiographic imaging, AP portable projection, 1 imageFINDINGSNo cardiomegaly.Small right pleural effusion.Linear airspace opacities in the right lung.Left lung is clear.No pneumothorax.No acute osseous abnormality.Right PICC in place.IMPRESSIONNo significant interval acute cardiopulmonary changes.Electronically signed by: Don Cerrato (Jun 07, 2022 23:45:06)
[2022-06-08] MEDS: DUONEB 0.5 MG/3 MG (3 mL) NEB PRN ×5 (04:50→20:45)
[2022-06-08] MEDS: CLEOCIN 600 MG IV PREMIX 600 MG/50 ML BAG IV SCH ×3 (05:06→21:01)
[2022-06-08] MEDS: PERCOCET TAB 5/325 MG PO PRN (05:25)
[2022-06-08] MEDS: ZOSYN VIAL 4.5 GRAMS 4.5 G in NS 100 ML IV 100 ML IV SCH ×3 (06:01→22:04)
[2022-06-08] MEDS: ASPIRIN EC 81 MG PO SCH (09:04)
[2022-06-08] MEDS: LIPITOR TAB 20 MG PO SCH (09:05)
[2022-06-08] MEDS: PREDNISONE TAB 5 MG PO SCH ×2 (09:05→21:00)
[2022-06-08] MEDS: NORVASC TAB 10 MG PO SCH ×2 (09:05→21:00)
[2022-06-08] MEDS: MILK OF MAGNESIA PO PRN (13:28)
[2022-06-08] MEDS ORDERED: LEXAPRO ONE (20:18)
[2022-06-08] MEDS: LEXAPRO PO SCH (21:00)
[2022-06-08] MEDS: FLOMAX PO SCH (21:00)
[2022-06-08] MEDS: LOTENSIN TAB 10 MG PO SCH (21:00)
[2022-06-08] MEDS: VISTARIL PO PRN (21:01)
[2022-06-08] MEDS: RESTORIL CAP 15 MG PO PRN (21:01)
[2022-06-09] MEDS: DUONEB 0.5 MG/3 MG (3 mL) NEB PRN ×6 (00:28→20:28)
[2022-06-09] MEDS: CLEOCIN 600 MG IV PREMIX 600 MG/50 ML BAG IV SCH ×3 (05:11→21:15)
[2022-06-09] MEDS: ZOSYN VIAL 4.5 GRAMS 4.5 G in NS 100 ML IV 100 ML IV SCH ×3 (05:59→21:15)
[2022-06-09 06:17] LABS: BASOPHILS # (AUTO) 0.1 X10^3/uL (0.0-0.1); BASOPHILS % (AUTO) 0.6 % (0.2-1.0); EOSINOPHILS # (AUTO) 0.3 x10^3/uL (0.0-0.2); EOSINOPHILS % (AUTO) 2.7 % (0.9-2.9); HEMATOCRIT 32.7 % (42.0-54.0); HEMOGLOBIN 10.9 g/dL (13.5-18.0); LYMPHOCYTES # (AUTO) 1.3 X10^3/uL (1.3-2.9); LYMPHOCYTES % (AUTO) 10.7 % (21.0-51.0); MEAN CORPUSCULAR HEMOGLOBIN 28.5 pg (27.0-34.0); MEAN CORPUSCULAR HGB CONC 33.5 g/dL (33.0-35.0); MEAN CORPUSCULAR VOLUME 85.1 fL (80.0-100.0); MEAN PLATELET VOLUME 6.7 fL (7.4-11.0); MONOCYTES # (AUTO) 0.8 x10^3/uL (0.3-0.8); MONOCYTES % (AUTO) 6.4 % (0.0-13.0); NEUTROPHILS # (AUTO) 9.8 x10^3/uL (2.2-4.8); NEUTROPHILS % (AUTO) 79.6 % (42.0-75.0); RED BLOOD COUNT 3.84 X10^6/uL (4.7-6.0); RED CELL DISTRIBUTION WIDTH 18.1 % (11.6-16.5); WHITE BLOOD COUNT 12.3 X10^3/uL (3.6-10.0)
[2022-06-09 07:01] LABS: ALANINE AMINOTRANSFERASE 29 Units/L (12-78); ALBUMIN 2.6 g/dL (3.4-5.0); ALKALINE PHOSPHATASE 94 Units/L (46-116); ASPARTATE AMINO TRANSFERASE 19 Units/L (15-37); BLOOD UREA NITROGEN 9 mg/dL (7-18); CALCIUM 8.8 mg/dL (8.5-10.1); CARBON DIOXIDE 27.1 mmol/L (21-32); CHLORIDE 104 mmol/L (98-107); COR CA(FOR HYPOALB) 9.9 mg/dL (8.5-10.1); CREATININE 0.77 mg/dL (0.70-1.30); SODIUM 138 mmol/L (136-145); TOTAL PROTEIN 6.7 g/dL (6.4-8.2); eGFR NON BLACK RACES > 60 (>60)
[2022-06-09] MEDS: PREDNISONE TAB 5 MG PO SCH ×2 (08:33→20:33)
[2022-06-09] MEDS: LIPITOR TAB 20 MG PO SCH (08:33)
[2022-06-09] MEDS: ASPIRIN EC 81 MG PO SCH (08:33)
[2022-06-09] MEDS: NORVASC TAB 10 MG PO SCH ×2 (08:33→20:32)
[2022-06-09 14:47] LABS: BILIRUBIN,URINE NEGATIVE (NEGATIVE); BLOOD/HEMOGLOBIN,URINE 1+ (NEGATIVE); GLUCOSE, URINE NEGATIVE (NEGATIVE); KETONES,URINE NEGATIVE (NEGATIVE); LEUKOCYTE ESTERASE ,URINE NEGATIVE (NEGATIVE); NITRITES,URINE NEGATIVE (NEGATIVE); PROTEIN,URINE 2+ (NEGATIVE); UROBILINOGEN,URINE NORMAL (NORMAL)
[2022-06-09 14:49] LABS: APPEARANCE,URINE CLEAR (CLEAR); COLOR,URINE YELLOW (YELLOW)
[2022-06-09 14:56] LABS: BACTERIA,URINE TRACE /HPF (NEGATIVE); RBC,URINE 0-2 /HPF (0-3); SQUAMOUS EPITHELIAL CELL,UR RARE /HPF (NEGATIVE)
--- NOTE | 2022-06-09 17:55 | PCM.PROG ---
Progress Note - Progress Note for Day of Date of Exam: 06/09/22 - Subjective Subjective: PT IS 77 WM TRANSFERRED FROM [facility] FOR SWING BE THERAPY TO RECEIVE IV ANTIBIOTIC THERAPY FOR TREATMENT OF R LUNG PNEUMONIA, EMPYEMA. PT DENIES ANY KNOWN COVID OR FLU EXPOSURE BUT HAS HAD ONSET OF CHILLS FOR ONE DAY. DENIES ANY INCREASED SOB OR N/V/D. PT ADMITTED FOR SWING BED TREATMENT. - Past Medical Family Social History Past Med/Fam/Surg Hx: No changes since H&P Allergies: Allergies No Known Drug Allergies Allergy (Verified 05/31/22 20:03) - Review of Systems ROS: No change since H&P - Vital Signs and I&O's Vital Signs: Temperature 98.9 F Pulse Rate [Left Brachial] 92 Pulse Rate [Bilateral Radial] 100 Pulse Rate 93 Respiratory Rate 18 Blood Pressure [Left Arm] 123/65 O2 Sat by Pulse Oximetry 94 Intake and Output: Intake & Output 06/07/22 06/08/22 06/09/22 06/10/22 11:59 11:59 11:59 11:59 Intake Total 1070 / 1070 1510 / 1510 2356 / 2356 1074 / 1074 Output Total 1300 / 1300 280 / 280 900 / 900 Balance -230 / -230 1510 / 1510 2076 / 2076 174 / 174 - Physical Exam Oriented: Normal Eyes: Normal Ear: Normal Nose: Normal Throat: Normal Respiratory: Diminished Cardiovascular: Normal. negative: Edema : Normal Auscultation: Bowel Sounds: Normal Tenderness: Normal Skin: Normal, Wound (RIGHT LATERAL ABDOMINAL POST OPERATIVE WOUND WITH VARINDER INTACT WITHOUT SS OF RENESS SWELLING OR DC) Musculoskeletal: Back:Lumbar Psychiatric: Normal Mood Description: Anxious Affect: Anxious Speech Pattern: Clear, Appropriate - Laboratory and Diagnostics Result Diagrams: 06/09/22 05:17 06/09/22 05:17 Labs: Laboratory WBC 12.3 X10^3/uL (3.6-10.0) H 06/09/22 05:17 RBC 3.84 X10^6/uL (4.7-6.0) L 06/09/22 05:17 Hgb 10.9 g/dL (13.5-18.0) L 06/09/22 05:17 Hct 32.7 % (42.0-54.0) L 06/09/22 05:17 MCV 85.1 fL (80.0-100.0) 06/09/22 05:17 MCH 28.5 pg (27.0-34.0) 06/09/22 05:17 MCHC 33.5 g/dL (33.0-35.0) 06/09/22 05:17 RDW 18.1 % (11.6-16.5) H 06/09/22 05:17 Plt Count 243 X10^3/uL (150.0-450.0) 06/09/22 05:17 MPV 6.7 fL (7.4-11.0) L 06/09/22 05:17 Neut % (Auto) 79.6 % (42.0-75.0) H 06/09/22 05:17 Lymph % (Auto) 10.7 % (21.0-51.0) L 06/09/22 05:17 [place] % (Auto) 6.4 % (0.0-13.0) 06/09/22 05:17 Eos % (Auto) 2.7 % (0.9-2.9) 06/09/22 05:17 Baso % (Auto) 0.6 % (0.2-1.0) 06/09/22 05:17 Neut # (Auto) 9.8 x10^3/uL (2.2-4.8) H 06/09/22 05:17 Lymph # (Auto) 1.3 X10^3/uL (1.3-2.9) 06/09/22 05:17 [place] # (Auto) 0.8 x10^3/uL (0.3-0.8) 06/09/22 05:17 Eos # (Auto) 0.3 x10^3/uL (0.0-0.2) H 06/09/22 05:17 Baso # (Auto) 0.1 X10^3/uL (0.0-0.1) 06/09/22 05:17 Absolute Nucleated RBC 0.1 /100WBC 06/09/22 05:17 Sodium 138 mmol/L (136-145) 06/09/22 05:17 Corrected Sodium TNP 06/09/22 05:17 Potassium 4.4 mmol/L (3.5-5.1) 06/09/22 05:17 Chloride 104 mmol/L (98-107) 06/09/22 05:17 Carbon Dioxide 27.1 mmol/L (21-32) 06/09/22 05:17 BUN 9 mg/dL (7-18) 06/09/22 05:17 Creatinine 0.77 mg/dL (0.70-1.30) 06/09/22 05:17 Est GFR (MDRD) Af Amer > 60 (>60) 06/09/22 05:17 Est GFR (MDRD) Non-Af > 60 (>60) 06/09/22 05:17 Glucose 97 mg/dL (65-99) 06/09/22 05:17 Calcium 8.8 mg/dL (8.5-10.1) 06/09/22 05:17 Corrected Calcium 9.9 mg/dL (8.5-10.1) 06/09/22 05:17 Magnesium 2.0 mg/dL (1.7-2.9) 06/02/22 05:59 Total Bilirubin 0.40 mg/dL (0.2-1.0) 06/09/22 05:17 AST 19 Units/L (15-37) 06/09/22 05:17 ALT 29 Units/L (12-78) 06/09/22 05:17 Alkaline Phosphatase 94 Units/L (46-116) 06/09/22 05:17 Total Protein 6.7 g/dL (6.4-8.2) 06/09/22 05:17 Albumin 2.6 g/dL (3.4-5.0) L 06/09/22 05:17 Globulin 4.1 g/dL (2.5-4.5) 06/09/22 05:17 Albumin/Globulin Ratio 0.6 Ratio (1.1-2.1) L 06/09/22 05:17 Specimen Type Clean catch urine 06/09/22 14:30 Urine Color Yellow (YELLOW) 06/09/22 14:30 Urine Appearance Clear (CLEAR) 06/09/22 14:30 Urine pH 6.0 (5.0 - 8.0) 06/09/22 14:30 Ur Specific [place] 1.020 (1.000-1.030) 06/09/22 14:30 Urine Protein 2+ (NEGATIVE) 06/09/22 14:30 Urine Glucose (UA) Negative (NEGATIVE) 06/09/22 14:30 Urine Ketones Negative (NEGATIVE) 06/09/22 14:30 Urine Blood 1+ (NEGATIVE) 06/09/22 14:30 Urine Nitrite Negative (NEGATIVE) 06/09/22 14:30 Urine Bilirubin Negative (NEGATIVE) 06/09/22 14:30 Urine Urobilinogen Normal (NORMAL) 06/09/22 14:30 Ur Leukocyte Esterase Negative (NEGATIVE) 06/09/22 14:30 Urine RBC 0-2 /HPF (0-3) 06/09/22 14:30 Urine WBC None seen /HPF (0-5) 06/09/22 14:30 Ur Squamous Epith Cells Rare /HPF (NEGATIVE) 06/09/22 14:30 Amorphous Sediment 1+ /HPF (NEGATIVE) 06/09/22 14:30 Urine Bacteria Trace /HPF (NEGATIVE) 06/09/22 14:30 Ur Culture Indicated? No/not indicated 06/09/22 14:30 SARS-CoV-2 (PCR) Negative (NEGATIVE) 06/09/22 13:10 Influenza Type A (PCR) Negative (NEGATIVE) 06/09/22 13:10 Influenza Type B (PCR) Negative (NEGATIVE) 06/09/22 13:10 RSV (PCR) Negative (NEGATIVE) 06/09/22 13:10 - Plan (1) Empyema lung Status: Acute Plan: SWING BED THERAPY FOR IV ATBX THERAPY. CONTINUE HOME MEDICATION, ROUTINE LABS
[2022-06-09] MEDS ORDERED: LEXAPRO ONE (19:56)
[2022-06-09] MEDS: LOTENSIN TAB 10 MG PO SCH (20:32)
[2022-06-09] MEDS: LEXAPRO PO SCH (20:33)
[2022-06-09] MEDS: RESTORIL CAP 15 MG PO PRN (20:33)
[2022-06-09] MEDS: FLOMAX PO SCH (20:33)
[2022-06-09] MEDS: PERCOCET TAB 5/325 MG PO PRN (20:34)
--- NOTE | 2022-06-09 23:17 | RAD ---
HISTORYEmpyemaSTUDYCHEST, PA/LAT ADULTCOMPARISONNone availableTECHNIQUEPA and lateral projections, 2 imagesFINDINGSCardiac silhouette is normal in size and configuration.Pulmonary vascular sizes are normal.No effusion.Linear lung markings in the right lung are unchanged.Partially imaged cutaneous ronak in place overlying the right lower thorax.Right PICC tip overlies the mid SVC.No pneumothorax.No acute osseous abnormalityIMPRESSIONNo significant interval acute cardiopulmonary changes.Electronically signed by: Don Cerrato (Jun 09, 2022 23:15:52)
[2022-06-10] MEDS: DUONEB 0.5 MG/3 MG (3 mL) NEB PRN ×6 (00:25→21:44)
[2022-06-10] MEDS: CLEOCIN 600 MG IV PREMIX 600 MG/50 ML BAG IV SCH ×3 (04:59→21:06)
[2022-06-10 06:30] LABS: BASOPHILS # (AUTO) 0.1 X10^3/uL (0.0-0.1); BASOPHILS % (AUTO) 0.7 % (0.2-1.0); EOSINOPHILS # (AUTO) 0.4 x10^3/uL (0.0-0.2); EOSINOPHILS % (AUTO) 3.8 % (0.9-2.9); HEMATOCRIT 31.4 % (42.0-54.0); HEMOGLOBIN 10.5 g/dL (13.5-18.0); LYMPHOCYTES # (AUTO) 1.2 X10^3/uL (1.3-2.9); LYMPHOCYTES % (AUTO) 12.8 % (21.0-51.0); MEAN CORPUSCULAR HEMOGLOBIN 28.5 pg (27.0-34.0); MEAN CORPUSCULAR HGB CONC 33.4 g/dL (33.0-35.0); MEAN CORPUSCULAR VOLUME 85.3 fL (80.0-100.0); MEAN PLATELET VOLUME 6.7 fL (7.4-11.0); MONOCYTES # (AUTO) 0.6 x10^3/uL (0.3-0.8); MONOCYTES % (AUTO) 6.9 % (0.0-13.0); NEUTROPHILS % (AUTO) 75.8 % (42.0-75.0); RED BLOOD COUNT 3.68 X10^6/uL (4.7-6.0); RED CELL DISTRIBUTION WIDTH 17.8 % (11.6-16.5); WHITE BLOOD COUNT 9.2 X10^3/uL (3.6-10.0)
[2022-06-10] MEDS: ZOSYN VIAL 4.5 GRAMS 4.5 G in NS 100 ML IV 100 ML IV SCH ×3 (06:39→21:06)
[2022-06-10] MEDS: LIPITOR TAB 20 MG PO SCH (09:20)
[2022-06-10] MEDS: PREDNISONE TAB 5 MG PO SCH ×2 (09:20→21:06)
[2022-06-10] MEDS: ASPIRIN EC 81 MG PO SCH (09:20)
[2022-06-10] MEDS: NORVASC TAB 10 MG PO SCH ×2 (09:21→21:06)
[2022-06-10] MEDS ORDERED: LEXAPRO ONE (20:17)
[2022-06-10] MEDS: PERCOCET TAB 5/325 MG PO PRN (21:05)
[2022-06-10] MEDS: LOTENSIN TAB 10 MG PO SCH (21:05)
[2022-06-10] MEDS: LEXAPRO PO SCH (21:06)
[2022-06-10] MEDS: RESTORIL CAP 15 MG PO PRN (21:06)
[2022-06-10] MEDS: FLOMAX PO SCH (21:06)
[2022-06-11] MEDS ORDERED: NS 250 ML IV 250 ML IV ONE (05:03)
[2022-06-11] MEDS: ZOSYN VIAL 4.5 GRAMS 4.5 G in NS 100 ML IV 100 ML IV SCH ×3 (05:22→21:01)
[2022-06-11] MEDS: CLEOCIN 600 MG IV PREMIX 600 MG/50 ML BAG IV SCH ×3 (05:22→20:59)
[2022-06-11] MEDS: DUONEB 0.5 MG/3 MG (3 mL) NEB PRN ×4 (08:30→20:10)
[2022-06-11] MEDS: PREDNISONE TAB 5 MG PO SCH ×2 (09:25→21:00)
[2022-06-11] MEDS: ASPIRIN EC 81 MG PO SCH (09:25)
[2022-06-11] MEDS: NORVASC TAB 10 MG PO SCH ×2 (09:25→21:01)
[2022-06-11] MEDS: LIPITOR TAB 20 MG PO SCH (09:25)
--- NOTE | 2022-06-11 13:38 | PCM.PROG ---
Progress Note - Progress Note for Day of Date of Exam: 06/11/22 - Subjective Subjective: PT IS 77 WM TRANSFERRED FROM [facility] FOR SWING BE THERAPY TO RECEIVE IV ANTIBIOTIC THERAPY FOR TREATMENT OF R LUNG PNEUMONIA, EMPYEMA. PT DENIES ANY KNOWN COVID OR FLU EXPOSURE BUT HAS HAD ONSET OF CHILLS FOR ONE DAY ON TUESDAY. PT HAD RESP SWAB OBTAINED AND IT WAS NEGATIVE. REVIEWED DIAGNOSTICS TEST AND LAB RESULTS WITH PATIENT. DENIES ANY INCREASED SOB OR N/V/D. PT ADMITTED FOR SWING BED TREATMENT. - Past Medical Family Social History Past Med/Fam/Surg Hx: No changes since H&P Allergies: Allergies No Known Drug Allergies Allergy (Verified 05/31/22 20:03) - Review of Systems ROS: No change since H&P - Vital Signs and I&O's Vital Signs: Temperature 97.7 F Pulse Rate [Left Brachial] 78 Pulse Rate [Bilateral Radial] 100 Pulse Rate 92 Respiratory Rate 20 Blood Pressure [Left Arm] 137/67 O2 Sat by Pulse Oximetry 95 Intake and Output: Intake & Output 06/09/22 06/10/22 06/11/22 06/12/22 11:59 11:59 11:59 11:59 Intake Total 2356 / 2356 2254 / 2254 1430 / 1430 Output Total 280 / 280 1250 / 1250 600 / 600 Balance 2076 / 2076 1004 / 1004 830 / 830 - Physical Exam Oriented: Normal Eyes: Normal Ear: Normal Nose: Normal Throat: Normal Respiratory: Diminished Cardiovascular: Normal. negative: Edema : Normal Auscultation: Bowel Sounds: Normal Tenderness: Normal Skin: Normal, Wound (RIGHT LATERAL ABDOMINAL POST OPERATIVE WOUND WITH VARINDER INTACT WITHOUT SS OF RENESS SWELLING OR DC) Musculoskeletal: Back:Lumbar Psychiatric: Normal Mood Description: Anxious Affect: Anxious Speech Pattern: Clear, Appropriate - Laboratory and Diagnostics Result Diagrams: 06/10/22 05:53 06/09/22 05:17 Labs: Laboratory WBC 9.2 X10^3/uL (3.6-10.0) 06/10/22 05:53 RBC 3.68 X10^6/uL (4.7-6.0) L 06/10/22 05:53 Hgb 10.5 g/dL (13.5-18.0) L 06/10/22 05:53 Hct 31.4 % (42.0-54.0) L 06/10/22 05:53 MCV 85.3 fL (80.0-100.0) 06/10/22 05:53 MCH 28.5 pg (27.0-34.0) 06/10/22 05:53 MCHC 33.4 g/dL (33.0-35.0) 06/10/22 05:53 RDW 17.8 % (11.6-16.5) H 06/10/22 05:53 Plt Count 246 X10^3/uL (150.0-450.0) 06/10/22 05:53 MPV 6.7 fL (7.4-11.0) L 06/10/22 05:53 Neut % (Auto) 75.8 % (42.0-75.0) H 06/10/22 05:53 Lymph % (Auto) 12.8 % (21.0-51.0) L 06/10/22 05:53 [place] % (Auto) 6.9 % (0.0-13.0) 06/10/22 05:53 Eos % (Auto) 3.8 % (0.9-2.9) H 06/10/22 05:53 Baso % (Auto) 0.7 % (0.2-1.0) 06/10/22 05:53 Neut # (Auto) 7.0 x10^3/uL (2.2-4.8) H 06/10/22 05:53 Lymph # (Auto) 1.2 X10^3/uL (1.3-2.9) L 06/10/22 05:53 [place] # (Auto) 0.6 x10^3/uL (0.3-0.8) 06/10/22 05:53 Eos # (Auto) 0.4 x10^3/uL (0.0-0.2) H 06/10/22 05:53 Baso # (Auto) 0.1 X10^3/uL (0.0-0.1) 06/10/22 05:53 Absolute Nucleated RBC 0.0 /100WBC 06/10/22 05:53 Sodium 138 mmol/L (136-145) 06/09/22 05:17 Corrected Sodium TNP 06/09/22 05:17 Potassium 4.4 mmol/L (3.5-5.1) 06/09/22 05:17 Chloride 104 mmol/L (98-107) 06/09/22 05:17 Carbon Dioxide 27.1 mmol/L (21-32) 06/09/22 05:17 BUN 9 mg/dL (7-18) 06/09/22 05:17 Creatinine 0.77 mg/dL (0.70-1.30) 06/09/22 05:17 Est GFR (MDRD) Af Amer > 60 (>60) 06/09/22 05:17 Est GFR (MDRD) Non-Af > 60 (>60) 06/09/22 05:17 Glucose 97 mg/dL (65-99) 06/09/22 05:17 Calcium 8.8 mg/dL (8.5-10.1) 06/09/22 05:17 Corrected Calcium 9.9 mg/dL (8.5-10.1) 06/09/22 05:17 Magnesium 2.0 mg/dL (1.7-2.9) 06/02/22 05:59 Total Bilirubin 0.40 mg/dL (0.2-1.0) 06/09/22 05:17 AST 19 Units/L (15-37) 06/09/22 05:17 ALT 29 Units/L (12-78) 06/09/22 05:17 Alkaline Phosphatase 94 Units/L (46-116) 06/09/22 05:17 Total Protein 6.7 g/dL (6.4-8.2) 06/09/22 05:17 Albumin 2.6 g/dL (3.4-5.0) L 06/09/22 05:17 Globulin 4.1 g/dL (2.5-4.5) 06/09/22 05:17 Albumin/Globulin Ratio 0.6 Ratio (1.1-2.1) L 06/09/22 05:17 Specimen Type Clean catch urine 06/09/22 14:30 Urine Color Yellow (YELLOW) 06/09/22 14:30 Urine Appearance Clear (CLEAR) 06/09/22 14:30 Urine pH 6.0 (5.0 - 8.0) 06/09/22 14:30 Ur Specific [place] 1.020 (1.000-1.030) 06/09/22 14:30 Urine Protein 2+ (NEGATIVE) 06/09/22 14:30 Urine Glucose (UA) Negative (NEGATIVE) 06/09/22 14:30 Urine Ketones Negative (NEGATIVE) 06/09/22 14:30 Urine Blood 1+ (NEGATIVE) 06/09/22 14:30 Urine Nitrite Negative (NEGATIVE) 06/09/22 14:30 Urine Bilirubin Negative (NEGATIVE) 06/09/22 14:30 Urine Urobilinogen Normal (NORMAL) 06/09/22 14:30 Ur Leukocyte Esterase Negative (NEGATIVE) 06/09/22 14:30 Urine RBC 0-2 /HPF (0-3) 06/09/22 14:30 Urine WBC None seen /HPF (0-5) 06/09/22 14:30 Ur Squamous Epith Cells Rare /HPF (NEGATIVE) 06/09/22 14:30 Amorphous Sediment 1+ /HPF (NEGATIVE) 06/09/22 14:30 Urine Bacteria Trace /HPF (NEGATIVE) 06/09/22 14:30 Ur Culture Indicated? No/not indicated 06/09/22 14:30 SARS-CoV-2 (PCR) Negative (NEGATIVE) 06/09/22 13:10 Influenza Type A (PCR) Negative (NEGATIVE) 06/09/22 13:10 Influenza Type B (PCR) Negative (NEGATIVE) 06/09/22 13:10 RSV (PCR) Negative (NEGATIVE) 06/09/22 13:10 - Plan (1) Empyema lung Status: Acute Plan: SWING BED THERAPY FOR IV ATBX THERAPY. CONTINUE HOME MEDICATION, ROUTINE LABS
[2022-06-11] MEDS ORDERED: LEXAPRO ONE (19:17)
[2022-06-11] MEDS: LEXAPRO PO SCH (21:00)
[2022-06-11] MEDS: FLOMAX PO SCH (21:00)
[2022-06-11] MEDS: LOTENSIN TAB 10 MG PO SCH (21:00)
[2022-06-11] MEDS: RESTORIL CAP 15 MG PO PRN (21:01)
[2022-06-12] MEDS: CLEOCIN 600 MG IV PREMIX 600 MG/50 ML BAG IV SCH ×3 (05:02→21:44)
[2022-06-12] MEDS: ZOSYN VIAL 4.5 GRAMS 4.5 G in NS 100 ML IV 100 ML IV SCH ×3 (05:02→21:44)
[2022-06-12] MEDS: NORVASC TAB 10 MG PO SCH ×2 (09:08→20:00)
[2022-06-12] MEDS: PREDNISONE TAB 5 MG PO SCH ×2 (09:08→20:00)
[2022-06-12] MEDS: LIPITOR TAB 20 MG PO SCH (09:08)
[2022-06-12] MEDS: ASPIRIN EC 81 MG PO SCH (09:08)
[2022-06-12] MEDS: DUONEB 0.5 MG/3 MG (3 mL) NEB PRN ×4 (09:11→20:15)
[2022-06-12] MEDS ORDERED: LEXAPRO ONE (19:43)
[2022-06-12] MEDS: FLOMAX PO SCH (20:00)
[2022-06-12] MEDS: LEXAPRO PO SCH (20:00)
[2022-06-12] MEDS: LOTENSIN TAB 10 MG PO SCH (20:00)
[2022-06-12] MEDS: RESTORIL CAP 15 MG PO PRN (20:12)
[2022-06-13] MEDS: ZOSYN VIAL 4.5 GRAMS 4.5 G in NS 100 ML IV 100 ML IV SCH ×3 (05:11→21:02)
[2022-06-13] MEDS: CLEOCIN 600 MG IV PREMIX 600 MG/50 ML BAG IV SCH ×3 (05:11→21:02)
[2022-06-13] MEDS: DUONEB 0.5 MG/3 MG (3 mL) NEB PRN ×4 (08:15→21:00)
[2022-06-13] MEDS: NORVASC TAB 10 MG PO SCH ×2 (08:25→20:23)
[2022-06-13] MEDS: PREDNISONE TAB 5 MG PO SCH ×2 (08:25→20:23)
[2022-06-13] MEDS: LIPITOR TAB 20 MG PO SCH (08:26)
[2022-06-13] MEDS: ASPIRIN EC 81 MG PO SCH (08:26)
[2022-06-13] MEDS ORDERED: LEXAPRO ONE (19:58)
[2022-06-13] MEDS: FLOMAX PO SCH (20:23)
[2022-06-13] MEDS: LEXAPRO PO SCH (20:23)
[2022-06-13] MEDS: LOTENSIN TAB 10 MG PO SCH (20:23)
[2022-06-13] MEDS: RESTORIL CAP 15 MG PO PRN (21:02)
[2022-06-14] MEDS: DUONEB 0.5 MG/3 MG (3 mL) NEB PRN ×5 (05:00→20:00)
[2022-06-14] MEDS: ZOSYN VIAL 4.5 GRAMS 4.5 G in NS 100 ML IV 100 ML IV SCH ×3 (05:08→21:20)
[2022-06-14] MEDS: CLEOCIN 600 MG IV PREMIX 600 MG/50 ML BAG IV SCH ×3 (05:09→21:12)
[2022-06-14 06:12] LABS: BASOPHILS # (AUTO) 0.1 X10^3/uL (0.0-0.1); BASOPHILS % (AUTO) 1.1 % (0.2-1.0); EOSINOPHILS % (AUTO) 13.4 % (0.9-2.9); HEMATOCRIT 32.7 % (42.0-54.0); LYMPHOCYTES # (AUTO) 1.5 X10^3/uL (1.3-2.9); LYMPHOCYTES % (AUTO) 19.5 % (21.0-51.0); MEAN CORPUSCULAR HEMOGLOBIN 28.7 pg (27.0-34.0); MEAN CORPUSCULAR HGB CONC 33.7 g/dL (33.0-35.0); MEAN CORPUSCULAR VOLUME 85.3 fL (80.0-100.0); MEAN PLATELET VOLUME 6.6 fL (7.4-11.0); MONOCYTES # (AUTO) 0.6 x10^3/uL (0.3-0.8); MONOCYTES % (AUTO) 8.2 % (0.0-13.0); NEUTROPHILS # (AUTO) 4.4 x10^3/uL (2.2-4.8); NEUTROPHILS % (AUTO) 57.8 % (42.0-75.0); RED BLOOD COUNT 3.83 X10^6/uL (4.7-6.0); RED CELL DISTRIBUTION WIDTH 17.8 % (11.6-16.5); WHITE BLOOD COUNT 7.7 X10^3/uL (3.6-10.0)
[2022-06-14 06:17] LABS: BLOOD UREA NITROGEN 14 mg/dL (7-18); CALCIUM 8.4 mg/dL (8.5-10.1); CARBON DIOXIDE 26.6 mmol/L (21-32); CHLORIDE 106 mmol/L (98-107); CREATININE 0.88 mg/dL (0.70-1.30); SODIUM 141 mmol/L (136-145); eGFR NON BLACK RACES > 60 (>60)
[2022-06-14 07:10] LABS: ALANINE AMINOTRANSFERASE 32 Units/L (12-78); ALBUMIN 2.6 g/dL (3.4-5.0); ALKALINE PHOSPHATASE 97 Units/L (46-116); ASPARTATE AMINO TRANSFERASE 21 Units/L (15-37); COR CA(FOR HYPOALB) 9.5 mg/dL (8.5-10.1); TOTAL PROTEIN 6.4 g/dL (6.4-8.2)
[2022-06-14] MEDS: NORVASC TAB 10 MG PO SCH ×2 (09:01→20:34)
[2022-06-14] MEDS: ASPIRIN EC 81 MG PO SCH (09:02)
[2022-06-14] MEDS: PREDNISONE TAB 5 MG PO SCH ×2 (09:02→20:34)
[2022-06-14] MEDS: LIPITOR TAB 20 MG PO SCH (09:02)
[2022-06-14] MEDS: PERCOCET TAB 5/325 MG PO PRN (09:58)
--- NOTE | 2022-06-14 17:21 | PCM.PROG ---
Progress Note - Progress Note for Day of Date of Exam: 06/14/22 - Subjective Subjective: PT IS 77 WM TRANSFERRED FROM [facility] FOR SWING BE THERAPY TO RECEIVE IV ANTIBIOTIC THERAPY FOR TREATMENT OF R LUNG PNEUMONIA, EMPYEMA. PLAN TO REPEAT CXR TODAY. REVIEWED DIAGNOSTICS TEST AND LAB RESULTS WITH PATIENT. DENIES ANY INCREASED SOB OR N/V/D. PT ADMITTED FOR SWING BED TREATMENT. - Past Medical Family Social History Past Med/Fam/Surg Hx: No changes since H&P Allergies: Allergies No Known Drug Allergies Allergy (Verified 05/31/22 20:03) - Review of Systems ROS: No change since H&P - Vital Signs and I&O's Vital Signs: Temperature 97.8 F Pulse Rate [Left Brachial] 102 Pulse Rate [Bilateral Radial] 100 Pulse Rate 93 Respiratory Rate 18 Blood Pressure [Left Arm] 131/70 O2 Sat by Pulse Oximetry 96 Intake and Output: Intake & Output 06/12/22 06/13/22 06/14/22 06/15/22 11:59 11:59 11:59 11:59 Intake Total 2240 / 2240 2498 / 2498 1395 / 1395 1500 / 1500 Output Total 1550 / 1550 400 / 400 600 / 600 Balance 690 / 690 2098 / 2098 1395 / 1395 900 / 900 - Physical Exam Oriented: Normal Eyes: Normal Ear: Normal Nose: Normal Throat: Normal Respiratory: Diminished Cardiovascular: Normal. negative: Edema : Normal Auscultation: Bowel Sounds: Normal Tenderness: Normal Skin: Normal Musculoskeletal: Back:Lumbar Psychiatric: Normal Mood Description: Anxious Affect: Anxious Speech Pattern: Clear, Appropriate - Laboratory and Diagnostics Result Diagrams: 06/14/22 05:18 06/14/22 05:18 Labs: Laboratory WBC 7.7 X10^3/uL (3.6-10.0) 06/14/22 05:18 RBC 3.83 X10^6/uL (4.7-6.0) L 06/14/22 05:18 Hgb 11.0 g/dL (13.5-18.0) L 06/14/22 05:18 Hct 32.7 % (42.0-54.0) L 06/14/22 05:18 MCV 85.3 fL (80.0-100.0) 06/14/22 05:18 MCH 28.7 pg (27.0-34.0) 06/14/22 05:18 MCHC 33.7 g/dL (33.0-35.0) 06/14/22 05:18 RDW 17.8 % (11.6-16.5) H 06/14/22 05:18 Plt Count 288 X10^3/uL (150.0-450.0) 06/14/22 05:18 MPV 6.6 fL (7.4-11.0) L 06/14/22 05:18 Neut % (Auto) 57.8 % (42.0-75.0) 06/14/22 05:18 Lymph % (Auto) 19.5 % (21.0-51.0) L 06/14/22 05:18 [place] % (Auto) 8.2 % (0.0-13.0) 06/14/22 05:18 Eos % (Auto) 13.4 % (0.9-2.9) H 06/14/22 05:18 Baso % (Auto) 1.1 % (0.2-1.0) H 06/14/22 05:18 Neut # (Auto) 4.4 x10^3/uL (2.2-4.8) 06/14/22 05:18 Lymph # (Auto) 1.5 X10^3/uL (1.3-2.9) 06/14/22 05:18 [place] # (Auto) 0.6 x10^3/uL (0.3-0.8) 06/14/22 05:18 Eos # (Auto) 1.0 x10^3/uL (0.0-0.2) H 06/14/22 05:18 Baso # (Auto) 0.1 X10^3/uL (0.0-0.1) 06/14/22 05:18 Absolute Nucleated RBC 0.0 /100WBC 06/14/22 05:18 Sodium 141 mmol/L (136-145) 06/14/22 05:18 Corrected Sodium TNP 06/14/22 05:18 Potassium 4.0 mmol/L (3.5-5.1) 06/14/22 05:18 Chloride 106 mmol/L (98-107) 06/14/22 05:18 Carbon Dioxide 26.6 mmol/L (21-32) 06/14/22 05:18 BUN 14 mg/dL (7-18) 06/14/22 05:18 Creatinine 0.88 mg/dL (0.70-1.30) 06/14/22 05:18 Est GFR (MDRD) Af Amer > 60 (>60) 06/14/22 05:18 Est GFR (MDRD) Non-Af > 60 (>60) 06/14/22 05:18 Glucose 95 mg/dL (65-99) 06/14/22 05:18 Calcium 8.4 mg/dL (8.5-10.1) L 06/14/22 05:18 Corrected Calcium 9.5 mg/dL (8.5-10.1) 06/14/22 05:18 Magnesium 2.0 mg/dL (1.7-2.9) 06/02/22 05:59 Total Bilirubin 0.20 mg/dL (0.2-1.0) 06/14/22 05:18 AST 21 Units/L (15-37) 06/14/22 05:18 ALT 32 Units/L (12-78) 06/14/22 05:18 Alkaline Phosphatase 97 Units/L (46-116) 06/14/22 05:18 Total Protein 6.4 g/dL (6.4-8.2) 06/14/22 05:18 Albumin 2.6 g/dL (3.4-5.0) L 06/14/22 05:18 Globulin 3.8 g/dL (2.5-4.5) 06/14/22 05:18 Albumin/Globulin Ratio 0.7 Ratio (1.1-2.1) L 06/14/22 05:18 Specimen Type Clean catch urine 06/09/22 14:30 Urine Color Yellow (YELLOW) 06/09/22 14:30 Urine Appearance Clear (CLEAR) 06/09/22 14:30 Urine pH 6.0 (5.0 - 8.0) 06/09/22 14:30 Ur Specific [place] 1.020 (1.000-1.030) 06/09/22 14:30 Urine Protein 2+ (NEGATIVE) 06/09/22 14:30 Urine Glucose (UA) Negative (NEGATIVE) 06/09/22 14:30 Urine Ketones Negative (NEGATIVE) 06/09/22 14:30 Urine Blood 1+ (NEGATIVE) 06/09/22 14:30 Urine Nitrite Negative (NEGATIVE) 06/09/22 14:30 Urine Bilirubin Negative (NEGATIVE) 06/09/22 14:30 Urine Urobilinogen Normal (NORMAL) 06/09/22 14:30 Ur Leukocyte Esterase Negative (NEGATIVE) 06/09/22 14:30 Urine RBC 0-2 /HPF (0-3) 06/09/22 14:30 Urine WBC None seen /HPF (0-5) 06/09/22 14:30 Ur Squamous Epith Cells Rare /HPF (NEGATIVE) 06/09/22 14:30 Amorphous Sediment 1+ /HPF (NEGATIVE) 06/09/22 14:30 Urine Bacteria Trace /HPF (NEGATIVE) 06/09/22 14:30 Ur Culture Indicated? No/not indicated 06/09/22 14:30 SARS-CoV-2 (PCR) Negative (NEGATIVE) 06/09/22 13:10 Influenza Type A (PCR) Negative (NEGATIVE) 06/09/22 13:10 Influenza Type B (PCR) Negative (NEGATIVE) 06/09/22 13:10 RSV (PCR) Negative (NEGATIVE) 06/09/22 13:10 - Plan (1) Empyema lung Status: Acute Plan: SWING BED THERAPY FOR IV ATBX THERAPY. CONTINUE HOME MEDICATION, ROUTINE LABS
[2022-06-14] MEDS ORDERED: LEXAPRO ONE (20:07)
[2022-06-14] MEDS: LEXAPRO PO SCH (20:34)
[2022-06-14] MEDS: LOTENSIN TAB 10 MG PO SCH (20:34)
[2022-06-14] MEDS: RESTORIL CAP 15 MG PO PRN (20:34)
[2022-06-14] MEDS: FLOMAX PO SCH (20:34)
[2022-06-14] MEDS: MILK OF MAGNESIA PO PRN (20:35)
[2022-06-15] MEDS: CLEOCIN 600 MG IV PREMIX 600 MG/50 ML BAG IV SCH ×3 (05:08→21:11)
[2022-06-15] MEDS: ZOSYN VIAL 4.5 GRAMS 4.5 G in NS 100 ML IV 100 ML IV SCH ×3 (05:37→21:58)
[2022-06-15] MEDS: DUONEB 0.5 MG/3 MG (3 mL) NEB PRN ×5 (05:40→21:37)
--- NOTE | 2022-06-15 07:31 | RAD ---
HISTORYPneumoniaSTUDYChest PA and lateral [id number] normal heart size with clear left chest. Similar extent and distribution of scattered areas of linear parenchymal density and fluid collection in the right chest. There is no additional consolidation, or increasing fluid collection or pneumothorax.IMPRESSIONNo change.Electronically signed by: WILSON NOEL (Jun 15, 2022 07:30:25)
[2022-06-15] MEDS: PREDNISONE TAB 5 MG PO SCH ×2 (09:24→21:10)
[2022-06-15] MEDS: NORVASC TAB 10 MG PO SCH ×2 (09:24→21:10)
[2022-06-15] MEDS: LIPITOR TAB 20 MG PO SCH (09:24)
[2022-06-15] MEDS: ASPIRIN EC 81 MG PO SCH (09:24)
[2022-06-15] MEDS ORDERED: LEXAPRO ONE (20:21)
[2022-06-15] MEDS: RESTORIL CAP 15 MG PO PRN (21:10)
[2022-06-15] MEDS: FLOMAX PO SCH (21:10)
[2022-06-15] MEDS: LEXAPRO PO SCH (21:10)
[2022-06-15] MEDS: LOTENSIN TAB 10 MG PO SCH (21:11)
[2022-06-16] MEDS: VISTARIL PO PRN (03:18)
[2022-06-16] MEDS: CLEOCIN 600 MG IV PREMIX 600 MG/50 ML BAG IV SCH ×3 (05:05→21:37)
[2022-06-16 05:31] LABS: BASOPHILS # (AUTO) 0.1 X10^3/uL (0.0-0.1); BASOPHILS % (AUTO) 1.2 % (0.2-1.0); EOSINOPHILS # (AUTO) 1.2 x10^3/uL (0.0-0.2); EOSINOPHILS % (AUTO) 14.8 % (0.9-2.9); HEMATOCRIT 32.3 % (42.0-54.0); HEMOGLOBIN 10.7 g/dL (13.5-18.0); LYMPHOCYTES # (AUTO) 1.3 X10^3/uL (1.3-2.9); MEAN CORPUSCULAR HEMOGLOBIN 28.6 pg (27.0-34.0); MEAN CORPUSCULAR HGB CONC 33.2 g/dL (33.0-35.0); MEAN CORPUSCULAR VOLUME 85.9 fL (80.0-100.0); MEAN PLATELET VOLUME 6.6 fL (7.4-11.0); MONOCYTES # (AUTO) 0.7 x10^3/uL (0.3-0.8); MONOCYTES % (AUTO) 8.9 % (0.0-13.0); NEUTROPHILS % (AUTO) 60.1 % (42.0-75.0); RED BLOOD COUNT 3.76 X10^6/uL (4.7-6.0); RED CELL DISTRIBUTION WIDTH 17.9 % (11.6-16.5); WHITE BLOOD COUNT 8.3 X10^3/uL (3.6-10.0)
[2022-06-16] MEDS: ZOSYN VIAL 4.5 GRAMS 4.5 G in NS 100 ML IV 100 ML IV SCH ×3 (05:33→21:36)
[2022-06-16 05:40] LABS: ALANINE AMINOTRANSFERASE 29 Units/L (12-78); ALBUMIN 2.5 g/dL (3.4-5.0); ALKALINE PHOSPHATASE 94 Units/L (46-116); ASPARTATE AMINO TRANSFERASE 18 Units/L (15-37); BLOOD UREA NITROGEN 11 mg/dL (7-18); CALCIUM 8.4 mg/dL (8.5-10.1); CHLORIDE 107 mmol/L (98-107); COR CA(FOR HYPOALB) 9.6 mg/dL (8.5-10.1); CREATININE 0.87 mg/dL (0.70-1.30); SODIUM 143 mmol/L (136-145); TOTAL PROTEIN 5.9 g/dL (6.4-8.2); eGFR NON BLACK RACES > 60 (>60)
[2022-06-16] MEDS: DUONEB 0.5 MG/3 MG (3 mL) NEB PRN ×4 (08:48→21:54)
[2022-06-16] MEDS ORDERED: NS 250 ML IV 250 ML IV ONE (09:37)
[2022-06-16] MEDS: NYSTATIN SUSP MT SCH ×4 (10:06→21:35)
[2022-06-16] MEDS: PREDNISONE TAB 5 MG PO SCH ×2 (10:07→21:33)
[2022-06-16] MEDS: NORVASC TAB 10 MG PO SCH ×2 (10:07→21:34)
[2022-06-16] MEDS: ASPIRIN EC 81 MG PO SCH (10:07)
[2022-06-16] MEDS: LIPITOR TAB 20 MG PO SCH (10:07)
[2022-06-16] MEDS: MAGIC MOUTHWASH (Orig. Formula) MT SCH ×4 (10:08→21:37)
--- NOTE | 2022-06-16 12:43 | PCM.PROG ---
Progress Note - Progress Note for Day of Date of Exam: 06/16/22 - Subjective Subjective: PT IS 77 WM TRANSFERRED FROM [facility] FOR SWING BE THERAPY TO RECEIVE IV ANTIBIOTIC THERAPY FOR TREATMENT OF R LUNG PNEUMONIA, EMPYEMA. REVIEWED DIAGNOSTICS TEST AND LAB RESULTS WITH PATIENT. DENIES ANY INCREASED SOB OR N/V/D. PT ADMITTED FOR SWING BED TREATMENT. - Past Medical Family Social History Past Med/Fam/Surg Hx: No changes since H&P Allergies: Allergies No Known Drug Allergies Allergy (Verified 05/31/22 20:03) - Review of Systems ROS: No change since H&P - Vital Signs and I&O's Vital Signs: Temperature 98.9 F Pulse Rate [Left Brachial] 87 Pulse Rate [Bilateral Radial] 100 Pulse Rate 86 Respiratory Rate 20 Blood Pressure [Left Arm] 119/57 O2 Sat by Pulse Oximetry 93 Intake and Output: Intake & Output 06/14/22 06/15/22 06/16/22 06/17/22 11:59 11:59 11:59 11:59 Intake Total 1395 / 1395 3597 / 3597 2029 Output Total 600 / 600 Balance 1395 / 1395 2997 / 2997 2029 - Physical Exam Oriented: Normal Eyes: Normal Ear: Normal Nose: Normal Throat: Normal Respiratory: Diminished Cardiovascular: Normal. negative: Edema : Normal Auscultation: Bowel Sounds: Normal Tenderness: Normal Skin: Normal Musculoskeletal: Back:Lumbar Psychiatric: Normal Mood Description: Anxious Affect: Anxious Speech Pattern: Clear, Appropriate - Laboratory and Diagnostics Result Diagrams: 06/16/22 04:38 06/16/22 04:38 Labs: Laboratory WBC 8.3 X10^3/uL (3.6-10.0) 06/16/22 04:38 RBC 3.76 X10^6/uL (4.7-6.0) L 06/16/22 04:38 Hgb 10.7 g/dL (13.5-18.0) L 06/16/22 04:38 Hct 32.3 % (42.0-54.0) L 06/16/22 04:38 MCV 85.9 fL (80.0-100.0) 06/16/22 04:38 MCH 28.6 pg (27.0-34.0) 06/16/22 04:38 MCHC 33.2 g/dL (33.0-35.0) 06/16/22 04:38 RDW 17.9 % (11.6-16.5) H 06/16/22 04:38 Plt Count 320 X10^3/uL (150.0-450.0) 06/16/22 04:38 MPV 6.6 fL (7.4-11.0) L 06/16/22 04:38 Neut % (Auto) 60.1 % (42.0-75.0) 06/16/22 04:38 Lymph % (Auto) 15.0 % (21.0-51.0) L 06/16/22 04:38 [place] % (Auto) 8.9 % (0.0-13.0) 06/16/22 04:38 Eos % (Auto) 14.8 % (0.9-2.9) H 06/16/22 04:38 Baso % (Auto) 1.2 % (0.2-1.0) H 06/16/22 04:38 Neut # (Auto) 5.0 x10^3/uL (2.2-4.8) H 06/16/22 04:38 Lymph # (Auto) 1.3 X10^3/uL (1.3-2.9) 06/16/22 04:38 [place] # (Auto) 0.7 x10^3/uL (0.3-0.8) 06/16/22 04:38 Eos # (Auto) 1.2 x10^3/uL (0.0-0.2) H 06/16/22 04:38 Baso # (Auto) 0.1 X10^3/uL (0.0-0.1) 06/16/22 04:38 Absolute Nucleated RBC 0.0 /100WBC 06/16/22 04:38 Sodium 143 mmol/L (136-145) 06/16/22 04:38 Corrected Sodium TNP 06/16/22 04:38 Potassium 4.2 mmol/L (3.5-5.1) 06/16/22 04:38 Chloride 107 mmol/L (98-107) 06/16/22 04:38 Carbon Dioxide 30.0 mmol/L (21-32) 06/16/22 04:38 BUN 11 mg/dL (7-18) 06/16/22 04:38 Creatinine 0.87 mg/dL (0.70-1.30) 06/16/22 04:38 Est GFR (MDRD) Af Amer > 60 (>60) 06/16/22 04:38 Est GFR (MDRD) Non-Af > 60 (>60) 06/16/22 04:38 Glucose 91 mg/dL (65-99) 06/16/22 04:38 Calcium 8.4 mg/dL (8.5-10.1) L 06/16/22 04:38 Corrected Calcium 9.6 mg/dL (8.5-10.1) 06/16/22 04:38 Magnesium 2.0 mg/dL (1.7-2.9) 06/02/22 05:59 Total Bilirubin 0.20 mg/dL (0.2-1.0) 06/16/22 04:38 AST 18 Units/L (15-37) 06/16/22 04:38 ALT 29 Units/L (12-78) 06/16/22 04:38 Alkaline Phosphatase 94 Units/L (46-116) 06/16/22 04:38 Total Protein 5.9 g/dL (6.4-8.2) L 06/16/22 04:38 Albumin 2.5 g/dL (3.4-5.0) L 06/16/22 04:38 Globulin 3.4 g/dL (2.5-4.5) 06/16/22 04:38 Albumin/Globulin Ratio 0.7 Ratio (1.1-2.1) L 06/16/22 04:38 Specimen Type Clean catch urine 06/09/22 14:30 Urine Color Yellow (YELLOW) 06/09/22 14:30 Urine Appearance Clear (CLEAR) 06/09/22 14:30 Urine pH 6.0 (5.0 - 8.0) 06/09/22 14:30 Ur Specific [place] 1.020 (1.000-1.030) 06/09/22 14:30 Urine Protein 2+ (NEGATIVE) 06/09/22 14:30 Urine Glucose (UA) Negative (NEGATIVE) 06/09/22 14:30 Urine Ketones Negative (NEGATIVE) 06/09/22 14:30 Urine Blood 1+ (NEGATIVE) 06/09/22 14:30 Urine Nitrite Negative (NEGATIVE) 06/09/22 14:30 Urine Bilirubin Negative (NEGATIVE) 06/09/22 14:30 Urine Urobilinogen Normal (NORMAL) 06/09/22 14:30 Ur Leukocyte Esterase Negative (NEGATIVE) 06/09/22 14:30 Urine RBC 0-2 /HPF (0-3) 06/09/22 14:30 Urine WBC None seen /HPF (0-5) 06/09/22 14:30 Ur Squamous Epith Cells Rare /HPF (NEGATIVE) 06/09/22 14:30 Amorphous Sediment 1+ /HPF (NEGATIVE) 06/09/22 14:30 Urine Bacteria Trace /HPF (NEGATIVE) 06/09/22 14:30 Ur Culture Indicated? No/not indicated 06/09/22 14:30 SARS-CoV-2 (PCR) Negative (NEGATIVE) 06/09/22 13:10 Influenza Type A (PCR) Negative (NEGATIVE) 06/09/22 13:10 Influenza Type B (PCR) Negative (NEGATIVE) 06/09/22 13:10 RSV (PCR) Negative (NEGATIVE) 06/09/22 13:10 - Plan (1) Empyema lung Status: Acute Plan: SWING BED THERAPY FOR IV ATBX THERAPY. CONTINUE HOME MEDICATION, ROUTINE LABS
[2022-06-16] MEDS ORDERED: LEXAPRO ONE (20:55)
[2022-06-16] MEDS: LOTENSIN TAB 10 MG PO SCH (21:33)
[2022-06-16] MEDS: FLOMAX PO SCH (21:35)
[2022-06-16] MEDS: RESTORIL CAP 15 MG PO PRN (21:35)
[2022-06-16] MEDS: LEXAPRO PO SCH (21:36)
[2022-06-17] MEDS: CLEOCIN 600 MG IV PREMIX 600 MG/50 ML BAG IV SCH ×3 (05:05→21:18)
[2022-06-17] MEDS: ZOSYN VIAL 4.5 GRAMS 4.5 G in NS 100 ML IV 100 ML IV SCH ×3 (05:05→21:41)
[2022-06-17] MEDS: DUONEB 0.5 MG/3 MG (3 mL) NEB PRN ×3 (08:14→20:30)
[2022-06-17] MEDS: NYSTATIN SUSP MT SCH ×4 (09:19→21:16)
[2022-06-17] MEDS: PREDNISONE TAB 5 MG PO SCH ×2 (09:19→21:16)
[2022-06-17] MEDS: LIPITOR TAB 20 MG PO SCH (09:19)
[2022-06-17] MEDS: ASPIRIN EC 81 MG PO SCH (09:19)
[2022-06-17] MEDS: NORVASC TAB 10 MG PO SCH ×2 (09:19→21:16)
[2022-06-17] MEDS: MAGIC MOUTHWASH (Orig. Formula) MT SCH ×4 (09:20→21:19)
[2022-06-17] MEDS ORDERED: LEXAPRO ONE (20:16)
[2022-06-17] MEDS: LOTENSIN TAB 10 MG PO SCH (21:14)
[2022-06-17] MEDS: LEXAPRO PO SCH (21:15)
[2022-06-17] MEDS: FLOMAX PO SCH (21:15)
[2022-06-17] MEDS: RESTORIL CAP 15 MG PO PRN (21:18)
[2022-06-18] MEDS ORDERED: NS 100 ML IV 100 ML ONE (05:14)
[2022-06-18] MEDS: DUONEB 0.5 MG/3 MG (3 mL) NEB PRN ×5 (05:15→20:30)
[2022-06-18] MEDS: ZOSYN VIAL 4.5 GRAMS 4.5 G in NS 100 ML IV 100 ML IV SCH ×3 (05:31→21:13)
[2022-06-18] MEDS: CLEOCIN 600 MG IV PREMIX 600 MG/50 ML BAG IV SCH ×3 (05:31→21:11)
[2022-06-18 06:30] LABS: BASOPHILS # (AUTO) 0.1 X10^3/uL (0.0-0.1); BASOPHILS % (AUTO) 0.9 % (0.2-1.0); EOSINOPHILS # (AUTO) 1.3 x10^3/uL (0.0-0.2); HEMATOCRIT 33.7 % (42.0-54.0); HEMOGLOBIN 11.5 g/dL (13.5-18.0); LYMPHOCYTES # (AUTO) 1.7 X10^3/uL (1.3-2.9); LYMPHOCYTES % (AUTO) 21.5 % (21.0-51.0); MEAN CORPUSCULAR HEMOGLOBIN 29.1 pg (27.0-34.0); MEAN CORPUSCULAR VOLUME 85.5 fL (80.0-100.0); MEAN PLATELET VOLUME 6.3 fL (7.4-11.0); MONOCYTES # (AUTO) 0.6 x10^3/uL (0.3-0.8); MONOCYTES % (AUTO) 8.3 % (0.0-13.0); NEUTROPHILS # (AUTO) 4.1 x10^3/uL (2.2-4.8); NEUTROPHILS % (AUTO) 52.3 % (42.0-75.0); RED BLOOD COUNT 3.94 X10^6/uL (4.7-6.0); RED CELL DISTRIBUTION WIDTH 18.6 % (11.6-16.5); WHITE BLOOD COUNT 7.8 X10^3/uL (3.6-10.0)
[2022-06-18 06:45] LABS: ALANINE AMINOTRANSFERASE 29 Units/L (12-78); ALBUMIN 2.7 g/dL (3.4-5.0); ALKALINE PHOSPHATASE 83 Units/L (46-116); ASPARTATE AMINO TRANSFERASE 19 Units/L (15-37); BLOOD UREA NITROGEN 11 mg/dL (7-18); CALCIUM 8.7 mg/dL (8.5-10.1); CARBON DIOXIDE 25.6 mmol/L (21-32); CHLORIDE 106 mmol/L (98-107); COR CA(FOR HYPOALB) 9.7 mg/dL (8.5-10.1); CREATININE 0.89 mg/dL (0.70-1.30); SODIUM 143 mmol/L (136-145); TOTAL PROTEIN 6.2 g/dL (6.4-8.2); eGFR NON BLACK RACES > 60 (>60)
[2022-06-18] MEDS: NYSTATIN SUSP MT SCH ×4 (10:16→21:12)
[2022-06-18] MEDS: ASPIRIN EC 81 MG PO SCH (10:17)
[2022-06-18] MEDS: PREDNISONE TAB 5 MG PO SCH ×2 (10:17→21:12)
[2022-06-18] MEDS: NORVASC TAB 10 MG PO SCH ×2 (10:17→21:10)
[2022-06-18] MEDS: LIPITOR TAB 20 MG PO SCH (10:17)
[2022-06-18] MEDS: MAGIC MOUTHWASH (Orig. Formula) MT SCH ×4 (10:18→21:12)
[2022-06-18] MEDS ORDERED: LEXAPRO ONE (20:42)
[2022-06-18] MEDS: RESTORIL CAP 15 MG PO PRN (21:08)
[2022-06-18] MEDS: LOTENSIN TAB 10 MG PO SCH (21:09)
[2022-06-18] MEDS: FLOMAX PO SCH (21:10)
[2022-06-18] MEDS: LEXAPRO PO SCH (21:11)
[2022-06-19] MEDS ORDERED: NS 100 ML IV 100 ML ONE (02:11)
[2022-06-19] MEDS: DUONEB 0.5 MG/3 MG (3 mL) NEB PRN ×5 (05:30→21:00)
[2022-06-19] MEDS: CLEOCIN 600 MG IV PREMIX 600 MG/50 ML BAG IV SCH ×3 (06:08→21:36)
[2022-06-19] MEDS: ZOSYN VIAL 4.5 GRAMS 4.5 G in NS 100 ML IV 100 ML IV SCH ×3 (06:08→21:36)
[2022-06-19] MEDS: NYSTATIN SUSP MT SCH ×4 (08:45→20:31)
[2022-06-19] MEDS: ASPIRIN EC 81 MG PO SCH (08:46)
[2022-06-19] MEDS: MAGIC MOUTHWASH (Orig. Formula) MT SCH ×4 (08:46→20:34)
[2022-06-19] MEDS: LIPITOR TAB 20 MG PO SCH (08:47)
[2022-06-19] MEDS: NORVASC TAB 10 MG PO SCH ×2 (08:47→20:32)
[2022-06-19] MEDS: PREDNISONE TAB 5 MG PO SCH ×2 (08:47→20:32)
[2022-06-19] MEDS ORDERED: NS 250 ML IV 250 ML IV ONE (13:12)
[2022-06-19] MEDS ORDERED: LEXAPRO ONE (20:12)
[2022-06-19] MEDS: FLOMAX PO SCH (20:32)
[2022-06-19] MEDS: RESTORIL CAP 15 MG PO PRN (20:33)
[2022-06-19] MEDS: LEXAPRO PO SCH (20:33)
[2022-06-19] MEDS: LOTENSIN TAB 10 MG PO SCH (20:33)
[2022-06-20] MEDS: VISTARIL PO PRN ×2 (00:40→20:11)
[2022-06-20] MEDS: DUONEB 0.5 MG/3 MG (3 mL) NEB PRN ×5 (05:00→21:38)
[2022-06-20] MEDS: ZOSYN VIAL 4.5 GRAMS 4.5 G in NS 100 ML IV 100 ML IV SCH ×3 (06:05→21:05)
[2022-06-20] MEDS: CLEOCIN 600 MG IV PREMIX 600 MG/50 ML BAG IV SCH ×3 (06:05→21:05)
[2022-06-20] MEDS: NYSTATIN SUSP MT SCH ×4 (08:41→20:13)
[2022-06-20] MEDS: LIPITOR TAB 20 MG PO SCH (08:41)
[2022-06-20] MEDS: NORVASC TAB 10 MG PO SCH ×2 (08:41→20:11)
[2022-06-20] MEDS: PREDNISONE TAB 5 MG PO SCH ×2 (08:41→20:11)
[2022-06-20] MEDS: ASPIRIN EC 81 MG PO SCH (08:41)
[2022-06-20] MEDS: MAGIC MOUTHWASH (Orig. Formula) MT SCH ×4 (08:42→21:05)
[2022-06-20] MEDS ORDERED: NS 250 ML IV 250 ML IV ONE (13:58)
[2022-06-20] MEDS ORDERED: LEXAPRO ONE (19:21)
[2022-06-20] MEDS: RESTORIL CAP 15 MG PO PRN (20:09)
[2022-06-20] MEDS: LOTENSIN TAB 10 MG PO SCH (20:10)
[2022-06-20] MEDS: FLOMAX PO SCH (20:11)
[2022-06-20] MEDS: LEXAPRO PO SCH (20:12)
[2022-06-21 05:08] LABS: BASOPHILS # (AUTO) 0.1 X10^3/uL (0.0-0.1); BASOPHILS % (AUTO) 0.8 % (0.2-1.0); EOSINOPHILS # (AUTO) 1.3 x10^3/uL (0.0-0.2); EOSINOPHILS % (AUTO) 14.6 % (0.9-2.9); HEMATOCRIT 34.5 % (42.0-54.0); HEMOGLOBIN 11.5 g/dL (13.5-18.0); LYMPHOCYTES # (AUTO) 1.4 X10^3/uL (1.3-2.9); LYMPHOCYTES % (AUTO) 16.1 % (21.0-51.0); MEAN CORPUSCULAR HEMOGLOBIN 28.5 pg (27.0-34.0); MEAN CORPUSCULAR HGB CONC 33.2 g/dL (33.0-35.0); MEAN CORPUSCULAR VOLUME 85.9 fL (80.0-100.0); MEAN PLATELET VOLUME 6.3 fL (7.4-11.0); MONOCYTES # (AUTO) 0.9 x10^3/uL (0.3-0.8); MONOCYTES % (AUTO) 10.2 % (0.0-13.0); NEUTROPHILS # (AUTO) 5.2 x10^3/uL (2.2-4.8); NEUTROPHILS % (AUTO) 58.3 % (42.0-75.0); RED BLOOD COUNT 4.01 X10^6/uL (4.7-6.0); RED CELL DISTRIBUTION WIDTH 18.2 % (11.6-16.5); WHITE BLOOD COUNT 8.9 X10^3/uL (3.6-10.0)
[2022-06-21 05:23] LABS: ALANINE AMINOTRANSFERASE 24 Units/L (12-78); ALBUMIN 2.6 g/dL (3.4-5.0); ALKALINE PHOSPHATASE 94 Units/L (46-116); ASPARTATE AMINO TRANSFERASE 16 Units/L (15-37); BLOOD UREA NITROGEN 11 mg/dL (7-18); CALCIUM 8.6 mg/dL (8.5-10.1); CARBON DIOXIDE 27.1 mmol/L (21-32); CHLORIDE 106 mmol/L (98-107); COR CA(FOR HYPOALB) 9.7 mg/dL (8.5-10.1); CREATININE 0.86 mg/dL (0.70-1.30); SODIUM 143 mmol/L (136-145); TOTAL PROTEIN 5.9 g/dL (6.4-8.2); eGFR NON BLACK RACES > 60 (>60)
[2022-06-21] MEDS: CLEOCIN 600 MG IV PREMIX 600 MG/50 ML BAG IV SCH ×3 (05:35→21:20)
[2022-06-21] MEDS: ZOSYN VIAL 4.5 GRAMS 4.5 G in NS 100 ML IV 100 ML IV SCH ×3 (05:36→21:20)
[2022-06-21] MEDS: DUONEB 0.5 MG/3 MG (3 mL) NEB PRN ×5 (06:17→20:00)
[2022-06-21] MEDS: ASPIRIN EC 81 MG PO SCH (09:08)
[2022-06-21] MEDS: LIPITOR TAB 20 MG PO SCH (09:08)
[2022-06-21] MEDS: PREDNISONE TAB 5 MG PO SCH ×2 (09:08→20:33)
[2022-06-21] MEDS: NYSTATIN SUSP MT SCH ×4 (09:08→20:33)
[2022-06-21] MEDS: NORVASC TAB 10 MG PO SCH ×2 (09:08→20:33)
[2022-06-21] MEDS: MAGIC MOUTHWASH (Orig. Formula) MT SCH ×4 (09:09→20:32)
[2022-06-21] MEDS ORDERED: LEXAPRO ONE (20:15)
[2022-06-21] MEDS: LEXAPRO PO SCH (20:33)
[2022-06-21] MEDS: FLOMAX PO SCH (20:33)
[2022-06-21] MEDS: LOTENSIN TAB 10 MG PO SCH (20:33)
[2022-06-22] MEDS: CLEOCIN 600 MG IV PREMIX 600 MG/50 ML BAG IV SCH (05:16)
[2022-06-22] MEDS: ZOSYN VIAL 4.5 GRAMS 4.5 G in NS 100 ML IV 100 ML IV SCH (05:16)
[2022-06-22] MEDS: DUONEB 0.5 MG/3 MG (3 mL) NEB PRN (07:48)
--- NOTE | 2022-06-22 08:31 | RAD ---
HISTORYEMPYEMASTUDYChest x-ray two viewsCOMPARISONX-ray 06/14/2022FINDINGSLikely moderate right pleural effusion is seen which could be empyema given patient's history. Linear atelectasis or possible thickening of right pulmonary fissure persists. There is a right-sided PICC line terminates in the region of proximal SVC. Left lung is clear. Heart is normal in size.IMPRESSIONAppearance of the chest is unchanged.Electronically signed by: Ancelmo Marr (Jun 22, 2022 08:29:56)
[2022-06-22] MEDS: ASPIRIN EC 81 MG PO SCH (08:40)
[2022-06-22] MEDS: NYSTATIN SUSP MT SCH (08:40)
[2022-06-22] MEDS: NORVASC TAB 10 MG PO SCH (08:40)
[2022-06-22] MEDS: PREDNISONE TAB 5 MG PO SCH (08:40)
[2022-06-22] MEDS: LIPITOR TAB 20 MG PO SCH (08:40)
[2022-06-22] MEDS: MAGIC MOUTHWASH (Orig. Formula) MT SCH (08:41)
[2022-06-22 10:42] VITALS: BP 137/70
== END 2022-06-22 13:05 | disposition home or self-care (01) | DRG 191 ==
LOC: MED/SURG 17:45
PROVIDERS: ADMIT Internal Medicine; ATTEND Internal Medicine
DX: J90 Pleural effusion, not elsewhere classified; N17.8 Other acute kidney failure; Z51.89 Encounter for other specified aftercare; R53.1 Weakness; J43.8 Other emphysema